=== PATIENT | male | born 1950 | race Caucasian/White ===

== ENCOUNTER → 2017-01-05 | Outpatient (CLI) | payer MEDICARE, OTHER ==
--- NOTE | 2017-01-06 12:25 | XCELERA REPORT ---
[address] [address] Lower Extremity Arterial Evaluation Name: HILARIO BRUCE Age: 66 yrs Gender: Male : 1950 Patient Status: Outpatient Patient Location: Study Date: 01/05/2017 08:01 AM Procedure: A color flow and duplex scan of the lower extremity arteries was performed bilaterally with velocity and waveform anaylsis. Ankle brachial indicies performed. Reason For Study: PAIN Ordering Physician: POLO LEAHY Performed By: Willy Hood Measurements and Calculations Right Left FAIRGROUND OPERATOR PSV 107.6 130.4 cm/sec Prox PFA PSV 65.3 -104.1 cm/sec Dist SFA PSV -95.5 -111.7 cm/sec Dist Pop A PSV 98.7 95.7 cm/sec Dist WAYNE PSV 116.3 118.6 cm/sec Dist VBA DEVELOPER PSV 135.1 188.6 cm/sec Tj Pedis PSV 96.6 -123.4 cm/sec Right Side Arterial Evaluation Normal velocity and triphasic waveforms noted from the Common Femoral artery to the infrageniculate vessels. 0 % stenosis noted. Ankle Brachial index not obtainable due to compressibility. Left Side Arterial Evaluation Normal velocity and triphasic waveforms noted from the Common Femoral artery to the infrageniculate vessels. 0 % stenosis noted. Ankle Brachial index not obtainable due to compressibility. Interpretation Summary No hemodynamically significant lesions in the bilateral lower extremities, on duplex imaging, at rest. Atherosclerotic change suggested by non compressibility. : POLO LEAHY > Polo Leahy
== END ==
LOC: SP 07:39
PROVIDERS: ATTEND Surgery
DX: M79.606 Pain in leg, unspecified (principal)
CPT/HCPCS: 93925

== ENCOUNTER → 2017-01-26 | Outpatient (CLI) | payer MEDICARE, OTHER ==
[2017-01-26 11:30] LABS: ABSOLUTE BASOPHILS # (AUTO) 0.1 10^3/uL (0.0-0.2); ABSOLUTE EOSINOPHILS # (AUTO) 0.1 10^3/uL (0.0-0.6); ABSOLUTE LYMPHOCYTES (AUTO) 1.9 10^3/uL (0.5-4.7); ABSOLUTE MONOCYTES (AUTO) 0.7 10^3/uL (0.1-1.4); ABSOLUTE NEUT (AUTO) 5.5 10^3/uL (1.7-8.2); BASOPHILS % (AUTO) 0.9 % (0-2); EOSINOPHILS % (AUTO) 0.7 % (0-6); HEMATOCRIT 37.3 % (37.9-51.0); HGB HCT DIFFERENCE 1.7; LYMPHOCYTES % (AUTO) 23.3 % (13-45); MEAN CORPUSCULAR HEMOGLOBIN 32.2 pg (27.0-33.4); MEAN CORPUSCULAR HGB CONC 34.8 g/dL (32.0-36.0); MEAN CORPUSCULAR VOLUME 93 fl (80-97); MONOCYTES % (AUTO) 7.9 % (3-13); RED BLOOD COUNT 4.02 10^6/uL (4.35-5.55); RED CELL DISTRIBUTION WIDTH 12.4 % (11.5-14.0); SEGMENTED NEUTROPHILS % (AUTO) 67.2 % (42-78); WHITE BLOOD COUNT 8.2 10^3/uL (4.0-10.5)
[2017-01-26 11:51] LABS: ALANINE AMINOTRANSFERASE 38 U/L (21-72); ALBUMIN 4.3 g/dL (3.5-5.0); ALKALINE PHOSPHATASE 41 U/L (38-126); ANION GAP 13 (5-19); ASPARTATE AMINO TRANSFERASE 42 U/L (17-59); BILIRUBIN,DIRECT 0.6 mg/dL (0.0-0.4); BILIRUBIN,TOTAL 1.1 mg/dL (0.2-1.3); BLOOD UREA NITROGEN 22 mg/dL (7-20); C-REACTIVE PROTEIN 18.5 mg/L (<10.0); CALCIUM 10.2 mg/dL (8.4-10.2); CARBON DIOXIDE 27 mmol/L (22-30); CHLORIDE 100 mmol/L (98-107); CREATININE RESULT 1.16 mg/dL (0.52-1.25); GLUCOSE 295 mg/dL (75-110); POTASSIUM 4.8 mmol/L (3.6-5.0); SODIUM 139.8 mmol/L (137-145); TOTAL PROTEIN 7.7 g/dL (6.3-8.2)
[2017-01-26 12:11] LABS: ERYTHROCYTE SEDIMENTATION RATE 49 mm/hr (0-20)
--- NOTE | 2017-01-26 12:15 | RADIOLOGY REPORT (SQ) ---
EXAM DESCRIPTION: FOOT LEFT COMPLETE COMPLETED DATE/TIME: 01/26/2017 11:04 am REASON FOR STUDY: NON-PRS CHRONIC ULCER OTH PRT LEFT FOOT W FAT LAYER EXPOSED L97.522 NON-PRS CHRON IC ULCER OTH PRT LEFT FOOT W FAT LAYER COMPARISON: None. NUMBER OF VIEWS: Three views. TECHNIQUE: AP, lateral and oblique radiographic images acquired of the left foot. LIMITATIONS: None. FINDINGS: MINERALIZATION: Normal. BONES: No acute fracture or dislocation. No worrisome bone lesions. No evidence of osteomyelitis. JOINTS: There is mild subluxation of the 1st interphalangeal joint. SOFT TISSUES: The soft tissue ulcer on the base of the 1st digit. There is no evidence of osteomyeli tis. Extensive calcification within Achilles tendon. OTHER: No other significant finding. IMPRESSION: Mild subluxation of the 1st interphalangeal joint. No evidence of osteomyelitis. Prior Achilles tendinopathy versus prior injury. TECHNICAL DOCUMENTATION: JOB ID: [id number] [employer]- All Rights Reserved
== END ==
LOC: OD 10:32
PROVIDERS: ATTEND Nurse Practitioner Family
DX: L97.522 Non-pressure chronic ulcer of other part of left foot with fat layer exposed (principal)
CPT/HCPCS: 36415; 80053; 85025; 85652; 86140

== ENCOUNTER → 2018-03-30 | Outpatient (CLI) | payer MEDICARE, OTHER ==
[2018-03-30 11:42] LABS: ABSOLUTE BASOPHILS # (AUTO) 0.1 10^3/uL (0.0-0.2); ABSOLUTE LYMPHOCYTES (AUTO) 1.8 10^3/uL (0.5-4.7); ABSOLUTE MONOCYTES (AUTO) 0.6 10^3/uL (0.1-1.4); ABSOLUTE NEUT (AUTO) 6.9 10^3/uL (1.7-8.2); BASOPHILS % (AUTO) 0.8 % (0-2); EOSINOPHILS % (AUTO) 0.4 % (0-6); HEMATOCRIT 33.7 % (37.9-51.0); HEMOGLOBIN 11.4 g/dL (13.5-17.0); LYMPHOCYTES % (AUTO) 19.3 % (13-45); MEAN CORPUSCULAR HEMOGLOBIN 30.2 pg (27.0-33.4); MEAN CORPUSCULAR HGB CONC 33.7 g/dL (32.0-36.0); MEAN CORPUSCULAR VOLUME 90 fl (80-97); MONOCYTES % (AUTO) 6.5 % (3-13); PLATELET COUNT 266 10^3/uL (150-450); RED BLOOD COUNT 3.76 10^6/uL (4.35-5.55); RED CELL DISTRIBUTION WIDTH 12.7 % (11.5-14.0); TOTAL CELLS COUNTED % (AUTO) 100 %; WHITE BLOOD COUNT 9.5 10^3/uL (4.0-10.5)
--- NOTE | 2018-03-30 11:59 | RADIOLOGY REPORT (SQ) ---
EXAM DESCRIPTION: FOOT BILATERAL 3 VIEWS COMPLETED DATE/TIME: 03/30/2018 11:31 am REASON FOR STUDY: NON PRESSURE ULCER RT/LT FOOT WITH FAT LAYER EXPOSED E11.621 TYPE 2 DIABETES LUZ ITUS WITH FOOT ULCER L97.522 NON-PRS CHRONIC ULCER OTH PRT LEFT FOOT W FAT LAYER L97.512 NON-PRS C HRONIC ULCER OTH PRT RIGHT FOOT W FAT LAYER COMPARISON: None. NUMBER OF VIEWS: Three views. TECHNIQUE: AP, lateral and oblique radiographic images acquired of the right and left foot. LIMITATIONS: None. FINDINGS: MINERALIZATION: Normal. BONES: No fracture. Partial amputation of the tip of the left 1st distal phalanx. Subluxation of th e left 1st interphalangeal joint. The proximal and distal phalanges in the left 1st digit have a leslie ewhat heterogeneous appearance. There is a prominent dorsal calcaneal spur on the left. No signific ant osseous abnormality is seen on the right. There are dorsal and plantar calcaneal spurs on the ri ght. JOINTS: No effusions. SOFT TISSUES: Soft tissue calcifications are seen in the Achilles tendon on the left. OTHER: No other significant finding. IMPRESSION: 1. There are changes in the left 1st digit as described. Cannot exclude osteomyelitis. 2. There is a prominent dorsal calcaneal spur on the left. There is evidence of Achilles tendinopat hy. 3. Small dorsal and plantar calcaneal spurs on the right. TECHNICAL DOCUMENTATION: JOB ID: [id number] [employer]- All Rights Reserved Reading location - IP/workstation name: [email or web address]
[2018-03-30 12:06] LABS: ALANINE AMINOTRANSFERASE 17 U/L (21-72); ALBUMIN 3.9 g/dL (3.5-5.0); ALKALINE PHOSPHATASE 49 U/L (38-126); ANION GAP 15 (5-19); ASPARTATE AMINO TRANSFERASE 17 U/L (17-59); BILIRUBIN,DIRECT 0.4 mg/dL (0.0-0.4); BILIRUBIN,TOTAL 0.6 mg/dL (0.2-1.3); BLOOD UREA NITROGEN 29 mg/dL (7-20); C-REACTIVE PROTEIN 36.1 mg/L (<10.0); CALCIUM 9.6 mg/dL (8.4-10.2); CARBON DIOXIDE 28 mmol/L (22-30); CHLORIDE 93 mmol/L (98-107); POTASSIUM 5.1 mmol/L (3.6-5.0); TOTAL PROTEIN 7.5 g/dL (6.3-8.2)
[2018-03-30 12:28] LABS: ERYTHROCYTE SEDIMENTATION RATE 106 mm/hr (0-20)
[2018-03-30 13:02] LABS: GLUCOSE 447 mg/dL (75-110)
== END ==
LOC: OD 10:54
PROVIDERS: ATTEND Preventive Medicine Undersea and Hyperbaric Medicine
DX: E11.621 Type 2 diabetes mellitus with foot ulcer (principal); L97.522 Non-pressure chronic ulcer of other part of left foot with fat layer exposed
CPT/HCPCS: 36415; 80053; 83036; 85025; 85652; 86140

== ENCOUNTER → 2018-04-05 | Outpatient (CLI) | payer MEDICARE, OTHER ==
--- NOTE | 2018-04-06 17:19 | XCELERA REPORT ---
[address] [address] Lower Extremity Arterial Evaluation Name: HILARIO BRUCE Age: 67 yrs Gender: Male : 1950 Patient Status: Outpatient Patient Location: Study Date: 04/05/2018 03:14 PM Procedure: A color flow and duplex scan of the lower extremity arteries was performed bilaterally with velocity and waveform anaylsis. Reason For Study: ULCER Ordering Physician: FRANKLYN GENTILE Performed By: Hugo Gomez Measurements and Calculations Right Left [employer] PSV 121.0 135.9 cm/sec Prox PFA PSV -64.0 73.3 cm/sec Prox Pop A PSV 91.1 110.3 cm/sec Dist WAYNE PSV 102.7 104.3 cm/sec Dist IRRIGATION TECHNICIAN PSV 136.2 217.8 cm/sec Tj Pedis PSV -48.7 -71.2 cm/sec Right Side Arterial Evaluation Normal velocity and triphasic waveforms noted from the Common Femoral artery to the infrageniculate vessels . Ankle Brachial index indicates non compressibility. Left Side Arterial Evaluation Normal velocity and triphasic waveforms noted from the Common Femoral artery to the infrageniculate vessels, except for PSV ratio of 2 at the Posterior Tibial artery, suggesting > 50% stenosis . Ankle Brachial index indicates non compressibility. Interpretation Summary Ankle Brachial indices show non compressibility, indicating arteriosclerosis. No hemodynamically significant lesions in the right lower extremity only, on duplex imaging, at rest. Mild hemodynamically significant lesions in the left lower extremity only, on duplex imaging, at rest. : FRANKLYN GENTILE > Arnaldo Sullivan
== END ==
LOC: SP 15:17
PROVIDERS: ATTEND Preventive Medicine Undersea and Hyperbaric Medicine
DX: L97.512 Non-pressure chronic ulcer of other part of right foot with fat layer exposed (principal)
CPT/HCPCS: 93925

== ENCOUNTER 2018-04-06 11:34 | Inpatient (IN) | payer MEDICARE, OTHER ==
--- NOTE | 2018-04-06 12:07 | ER Document Report ---
ED Medical Screen (RME) - General Chief Complaint: Foot Pain Stated Complaint: FOOT PAIN Time Seen by Provider: 04/06/18 12:03 Notes: 67 years old male with history of diabetes diabetic ulcers, presents today with gangrenous left toe as well as toe infection on the right big toe. He was sent over here by his inspector agricultural commodities. TRAVEL OUTSIDE OF THE [place] IN LAST 30 DAYS: No - Related Data Allergies/Adverse Reactions: No Known Allergies Allergy (Unverified 04/06/18 11:36) Past Medical History - Social History Frequency of alcohol use: None Drug Abuse: None - Past Medical History Cardiac Medical History: Reports: Hx Hypercholesterolemia, Hx Hypertension Endocrine Medical History: Reports: Hx Diabetes Mellitus Type 2 Renal/ Medical History: Denies: Hx Peritoneal Dialysis Physical Exam - Vital signs Vitals: Temp Pulse Resp BP Pulse Ox 98.9 F 76 16 128/63 H 97 04/06/18 11:37 04/06/18 11:37 04/06/18 11:37 04/06/18 11:37 04/06/18 11:37 Course - Vital Signs Vital signs: Temp Pulse Resp BP Pulse Ox 98.9 F 76 16 128/63 H 97 04/06/18 11:37 04/06/18 11:37 04/06/18 11:37 04/06/18 11:37 04/06/18 11:37 Doctor's Discharge - Discharge Referrals: FRANKLYN GENTILE DPM [Primary Care Provider] - Follow up as needed
[2018-04-06 12:53] LABS: ABSOLUTE BASOPHILS # (AUTO) 0.1 10^3/uL (0.0-0.2); ABSOLUTE LYMPHOCYTES (AUTO) 2.2 10^3/uL (0.5-4.7); ABSOLUTE MONOCYTES (AUTO) 0.8 10^3/uL (0.1-1.4); ABSOLUTE NEUT (AUTO) 8.2 10^3/uL (1.7-8.2); BASOPHILS % (AUTO) 0.9 % (0-2); EOSINOPHILS % (AUTO) 0.3 % (0-6); HEMATOCRIT 31.3 % (37.9-51.0); HEMOGLOBIN 10.5 g/dL (13.5-17.0); LYMPHOCYTES % (AUTO) 19.5 % (13-45); MEAN CORPUSCULAR HEMOGLOBIN 29.4 pg (27.0-33.4); MEAN CORPUSCULAR HGB CONC 33.6 g/dL (32.0-36.0); MEAN CORPUSCULAR VOLUME 88 fl (80-97); MONOCYTES % (AUTO) 7.1 % (3-13); PLATELET COUNT 371 10^3/uL (150-450); RED BLOOD COUNT 3.57 10^6/uL (4.35-5.55); SEGMENTED NEUTROPHILS % (AUTO) 72.2 % (42-78); TOTAL CELLS COUNTED % (AUTO) 100 %; WHITE BLOOD COUNT 11.4 10^3/uL (4.0-10.5)
--- NOTE | 2018-04-06 13:21 | RADIOLOGY REPORT (SQ) ---
EXAM DESCRIPTION: TOE LEFT; TOE RIGHT COMPLETED DATE/TIME: 04/06/2018 1:09 pm REASON FOR STUDY: Toe infection, osteomyelitis COMPARISON: 03/30/2018 NUMBER OF VIEWS: Three views. TECHNIQUE: AP, lateral, and oblique images acquired of the bilateral great toes. LIMITATIONS: None. FINDINGS: MINERALIZATION: Normal. BONES: There has been the interval reduction of the previously seen dislocation of the distal phalanx of the left great toe. There is new erosive loss of mineralization. JOINTS: No effusions. SOFT TISSUES: Extensive soft tissue swelling about the left great toe with subcutaneous emphysema. OTHER: No other significant finding. IMPRESSION: 1. Interval reduction of the previously seen dislocation of the distal phalanx of the le ft great toe. 2. There is new erosive loss of mineralization of the distal phalanx, concerning for osteomyelitis. 3. Extensive soft tissue swelling about the left great toe with subcutaneous emphysema, findings con cerning for gas-forming infection. COMMENT: SITE OF TRAUMA/COMPLAINT MARKED/STAMP COMPLETED: YES. TECHNICAL DOCUMENTATION: JOB ID: [id number] [employer]- All Rights Reserved Reading location - IP/workstation name: [email or web address]
--- NOTE | 2018-04-06 13:21 | RADIOLOGY REPORT (SQ) ---
EXAM DESCRIPTION: TOE LEFT; TOE RIGHT COMPLETED DATE/TIME: 04/06/2018 1:09 pm REASON FOR STUDY: Toe infection, osteomyelitis COMPARISON: 03/30/2018 NUMBER OF VIEWS: Three views. TECHNIQUE: AP, lateral, and oblique images acquired of the bilateral great toes. LIMITATIONS: None. FINDINGS: MINERALIZATION: Normal. BONES: There has been the interval reduction of the previously seen dislocation of the distal phalanx of the left great toe. There is new erosive loss of mineralization. JOINTS: No effusions. SOFT TISSUES: Extensive soft tissue swelling about the left great toe with subcutaneous emphysema. OTHER: No other significant finding. IMPRESSION: 1. Interval reduction of the previously seen dislocation of the distal phalanx of the le ft great toe. 2. There is new erosive loss of mineralization of the distal phalanx, concerning for osteomyelitis. 3. Extensive soft tissue swelling about the left great toe with subcutaneous emphysema, findings con cerning for gas-forming infection. COMMENT: SITE OF TRAUMA/COMPLAINT MARKED/STAMP COMPLETED: YES. TECHNICAL DOCUMENTATION: JOB ID: [id number] [employer]- All Rights Reserved Reading location - IP/workstation name: [email or web address]
[2018-04-06 13:22] LABS: ALANINE AMINOTRANSFERASE 19 U/L (21-72); ALBUMIN 3.7 g/dL (3.5-5.0); ALKALINE PHOSPHATASE 69 U/L (38-126); ANION GAP 16 (5-19); ASPARTATE AMINO TRANSFERASE 31 U/L (17-59); BILIRUBIN,DIRECT 0.4 mg/dL (0.0-0.4); BILIRUBIN,TOTAL 0.7 mg/dL (0.2-1.3); BLOOD UREA NITROGEN 35 mg/dL (7-20); C-REACTIVE PROTEIN 72.3 mg/L (<10.0); CALCIUM 9.4 mg/dL (8.4-10.2); CARBON DIOXIDE 27 mmol/L (22-30); CHLORIDE 93 mmol/L (98-107); GLUCOSE 327 mg/dL (75-110); POTASSIUM 4.4 mmol/L (3.6-5.0); SODIUM 136.3 mmol/L (137-145); TOTAL PROTEIN 7.5 g/dL (6.3-8.2)
--- NOTE | 2018-04-06 13:23 | ER Document Report ---
ED General - General Chief Complaint: Foot Pain Stated Complaint: FOOT PAIN Time Seen by Provider: 04/06/18 12:03 Mode of Arrival: Ambulatory Information source: Patient TRAVEL OUTSIDE OF THE [place] IN LAST 30 DAYS: No - HPI Notes: 59-year-old male with a history of type 2 diabetes, hypertension presents to the ED for left toe pain with diabetic ulcers and weeping discharge from his wound care clinic. Patient has been seeing wound clinic for diabetic ulcers, was told that he may have osteomyelitis and will need IV antibiotics. Has not tried [id number] medications. Patient states his A1c is roughly 9.6, he does have an appointment with his primary care provider in the near future. Denies any new injury. States he has not had any sensation in his left foot for "years" denies fevers, chills, chest pain,palpitations, shortness of breath, d speech changes, LH, dizziness, syncope, headaches, wheezing, ST, URI, neck pain, numbness or tingling in bilateral upper or lower extremities equally aside from his left foot, muscle paralysis, weakness in bilateral upper or lower extremities bilaterally. - Related Data Allergies/Adverse Reactions: No Known Allergies Allergy (Unverified 04/06/18 11:36) Past Medical History - General Information source: Patient - Social History Smoking Status: Never Smoker Frequency of alcohol use: None Drug Abuse: None Family History: Reviewed & Not Pertinent Patient has suicidal ideation: No Patient has homicidal ideation: No - Past Medical History Cardiac Medical History: Reports: Hx Hypercholesterolemia, Hx Hypertension Endocrine Medical History: Reports: Hx Diabetes Mellitus Type 2 Renal/ Medical History: Denies: Hx Peritoneal Dialysis Review of Systems - Review of Systems Constitutional: No symptoms reported EENT: No symptoms reported Cardiovascular: No symptoms reported Respiratory: No symptoms reported Gastrointestinal: No symptoms reported Genitourinary: No symptoms reported Male Genitourinary: No symptoms reported Musculoskeletal: No symptoms reported Skin: See HPI Hematologic/Lymphatic: No symptoms reported Neurological/Psychological: No symptoms reported Physical Exam - Vital signs Vitals: Temp Pulse Resp BP Pulse Ox 98.9 F 76 16 128/63 H 97 04/06/18 11:37 04/06/18 11:37 04/06/18 11:37 04/06/18 11:37 04/06/18 11:37 - Notes Notes: PHYSICAL EXAMINATION: GENERAL: Well-appearing, well-nourished and in no acute distress. HEAD: Atraumatic, normocephalic. EYES: Pupils equal round and reactive to light, extraocular movements intact, sclera anicteric, conjunctiva are normal. ENT: Nares patent, oropharynx clear without exudates. Moist mucous membranes. NECK: Normal range of motion, supple without lymphadenopathy LUNGS: Breath sounds clear to auscultation bilaterally and equal. No wheezes rales or rhonchi. HEART: Regular rate and rhythm without murmurs ABDOMEN: Soft, nontender, nondistended abdomen. No guarding, no rebound. No masses appreciated. Musculoskeletal: Normal range of motion, no pitting or edema. No cyanosis. NEUROLOGICAL: Cranial nerves grossly intact. Normal speech, normal gait. Normal sensory, motor exams PSYCH: Normal mood, normal affect. SKIN: Warm, Dry, normal turgor, no rashes or lesions noted. Decubitus diabetic ulcers to left great toe with purulent drainage noted with surrounding erythema. Distal pulses +2 bilateral lower extremities. Skin warm, cap refill less than 3 seconds. Ulcer to right great toe approximately 2 cm x 2 cm. Course - Re-evaluation Re-evalutation: 04/06/18 14:12 -year-old male presents to the ED for evaluation of left great toe decubitus ulcer for concerns of osteomyelitis per wound clinic. CBC shows a white count of 11.4 no shift, lactic 1.5, CRP 72.3 x-ray of left foot does show extensive soft tissue swelling with subcutaneous emphysema concerning for gas formation as well as concerning for osteomyelitis due to new erosive loss of mineralization of the distal phalanx, patient has had previous dislocation. consulted with Dr. Pola Garza, surgeon, at [address] Mary Warner, hospitalist at 1410 for IV antibiotics and management of colitis possible necrotizing fasciitis, surgery consulted and will see patient. Plan of care and agreed with plan of care. Patient admitted to medical floor under hospitalist service. Vitals remained Stable throughout duration in ER - Vital Signs Vital signs: Temp Pulse Resp BP Pulse Ox 98.9 F 76 16 128/63 H 97 04/06/18 11:37 04/06/18 11:37 04/06/18 11:37 04/06/18 11:37 04/06/18 11:37 - Laboratory Result Diagrams: 04/06/18 12:38 04/06/18 12:38 Laboratory results interpreted by me: 04/06/18 04/06/18 12:38 12:38 WBC 11.4 H RBC 3.57 L Hgb 10.5 L Hct 31.3 L Sodium 136.3 L Chloride 93 L BUN 35 H Creatinine 1.59 H Est GFR ( Amer) 53 L Est GFR (Non-Af Amer) 44 L Glucose 327 H ALT 19 L C-Reactive Protein 72.3 H Discharge - Discharge Clinical Impression: Toe osteomyelitis, left Condition: Stable Disposition: ADMITTED INPATIENT Admitting Provider: Hospitalist - Dr. Zavala [facility] Unit Admitted: Medical Floor
[2018-04-06] MEDS ORDERED: PIPERACILLIN/TAZOBACTAM 3.375 GM VIAL IV ONE (14:00)
[2018-04-06] MEDS ORDERED: VANCOMYCIN HCL INJ 1000 MG VIAL IV ONE (14:00)
--- NOTE | 2018-04-06 14:50 | PDOC CONSULTATION ---
History of Present Illness Admission Date/PCP: 04/06/18 14:31 KARYNA SUTHERLAND MD Patient complains of: Left great toe infection History of Present Illness: HILARIO BRUCE is a 67 year old male with diabetes with several month history of left great toe ulcer now presenting with worsening redness and generalized malaise over the past several days. Along with drainage. Patient denies any fever but he has not been feeling well. Elevated blood sugars. Foul-smelling drainage. Patient does have sensation in his left foot albeit somewhat diminished. Patient denies any history of myocardial infarction nor cerebrovascular accident. No known peripheral vascular disease. Past Medical History Cardiac Medical History: Reports: Hyperlipidema, Hypertension Endocrine Medical History: Reports: Diabetes Mellitus Type 2 Social History Smoking Status: Never Smoker Family History Parental Family History Reviewed: No Children Family History Reviewed: No Sibling(s) Family History Reviewed.: No Medication/Allergy Allergies/Adverse Reactions: No Known Allergies Allergy (Unverified 04/06/18 11:36) Physical Exam Vital Signs: Temp Pulse Resp BP Pulse Ox 98.9 F 76 16 128/63 H 97 04/06/18 11:37 04/06/18 11:37 04/06/18 11:37 04/06/18 11:37 04/06/18 11:37 General appearance: PRESENT: no acute distress, cooperative Eye exam: PRESENT: conjunctiva pink Respiratory exam: PRESENT: clear to auscultation donaldo Cardiovascular exam: PRESENT: RRR GI/Abdominal exam: PRESENT: other - Soft, nondistended, nontender to palpation. Extremities exam: PRESENT: other - On the right great toe patient has a very shallow clean ulcer with no drainage no erythema. Patient has some skin thickening around the great toe however. He has palpable dorsalis pedis and posterior tibial pulses. On the left side patient has diffuse swelling and erythema and crepitus of the right great toe extending cephalad to the midportion of his great toe metatarsal. There is foul-smelling drainage. There is an ulcer at the plantar surface of the great toe with drainage at the center. I do not appreciate dorsalis pedis pulse but there is 2+ posterior tibial pulse on the left side. Neurological exam: PRESENT: alert, awake Psychiatric exam: PRESENT: appropriate affect Skin exam: PRESENT: warm Results Impressions: Toe X-Ray 04/06/18 12:05 IMPRESSION: 1. Interval reduction of the previously seen dislocation of the distal phalanx of the left great toe. 2. There is new erosive loss of mineralization of the distal phalanx, concerning for osteomyelitis. 3. Extensive soft tissue swelling about the left great toe with subcutaneous emphysema, findings concerning for gas-forming infection. Assessment & Plan - Diagnosis (1) Toe osteomyelitis, left Is this a current diagnosis for this admission?: Yes Plan: With subcutaneous air and erythema and foul-smelling drainage. We will plan emergency left great toe amputation and debridement. Will obviously leave the wound open with the degree of infection that is present. I have discussed with the patient the nature of the surgery and the risk and benefits including risk of requiring additional surgery, poor wound healing, continued spreading of infection, bleeding. Patient understands and agrees to proceed.
--- NOTE | 2018-04-06 15:06 | PDOC H&P ---
History of Present Illness Admission Date/PCP: KARYNA SUTHERLAND MD Patient complains of: Foot pain History of Present Illness: HILARIO BRUCE is a 67 year old male past medical history of diabetes and hypertension presented to ED ED complaining of bilateral great toe pain, plantar aspect ulcers ulcers, weeping discharge associated with pain with ambulation. He has had left great toe plantar aspect ulcer about 4 months which has been managed as outpatient by his sausage meat trimmer. One week ago he noticed that his left great toe ulcer was worsening and is starting to get red and become more painful he went to his sausage meat trimmer and was discharged with wound care. He noticed that his ulcer was not getting better and today he noticed that it was getting redder and starting to produce purulent discharge. Also has right great toe plantar aspect ulcer which has a started about a week ago he denies noticing form of trauma that could have caused the ulcer. He is denying any fever, shortness of breath, chills, nausea, vomiting, diarrhea , constipation or any urinary symptoms. ED he was found to have severely elevated CRP. 02/04/2018 left foot x-ray showed a left great toe new erosive loss of mineralization concerning for osteomyelitis as well as extensive soft tissue swelling around the great left toe with subcutaneous emphysema. 02/04/2018 right great toe x-ray could not exclude osteomyelitis. Surgery was consulted by ED physician and they were asked to call medicine team for admission and will follow patient. Past Medical History Cardiac Medical History: Reports: Hyperlipidema, Hypertension Endocrine Medical History: Reports: Diabetes Mellitus Type 2 Social History Smoking Status: Never Smoker Family History Parental Family History Reviewed: Yes Children Family History Reviewed: Yes Sibling(s) Family History Reviewed.: Yes Medication/Allergy Home Medications: Doxycycline Hyclate [Vibramycin 100 mg Tablet] 20 mg PO BID 04/06/18 Fenofibrate Nanocrystallized [Tricor 145 mg Tablet] 145 mg PO DAILY 04/06/18 Glimepiride [Amaryl 4 mg Tablet] 4 mg PO DAILY 04/06/18 Meclizine HCl [Antivert 12.5 mg Tablet] 12.5 mg PO BIDP PRN 04/06/18 Metoprolol Succinate [Toprol XL 100 mg Tablet] 100 mg PO DAILY 04/06/18 Allergies/Adverse Reactions: No Known Allergies Allergy (Unverified 04/06/18 11:36) Physical Exam Vital Signs: Temp Pulse Resp BP Pulse Ox 98.9 F 76 16 128/63 H 97 04/06/18 11:37 04/06/18 11:37 04/06/18 11:37 04/06/18 11:37 04/06/18 11:37 Intake & Output 04/05/18 04/06/18 04/07/18 06:59 06:59 06:59 Weight 105.3 kg General appearance: PRESENT: no acute distress, mild distress Head exam: PRESENT: atraumatic, normocephalic Eye exam: PRESENT: conjunctiva pink, EOMI, PERRLA. ABSENT: scleral icterus Ear exam: PRESENT: normal external ear exam Neck exam: ABSENT: carotid bruit, JVD, lymphadenopathy, thyromegaly Respiratory exam: PRESENT: clear to auscultation donaldo. ABSENT: rales, rhonchi, wheezes Cardiovascular exam: PRESENT: RRR. ABSENT: diastolic murmur, rubs, systolic murmur Pulses: PRESENT: normal dorsalis pedis pul Vascular exam: PRESENT: normal capillary refill Rectal exam: PRESENT: deferred Extremities exam: PRESENT: other - Left great toe swollen red erythematous with clear weeping discharge. Tender to palpation. There is an ulcer at the base of the left great toe Right great toe plantar aspect 2 x 2 centimeter ulcer erythematous with no sign of discharge. Musculoskeletal exam: PRESENT: full ROM, normal inspection Neurological exam: PRESENT: alert, awake, oriented to person, oriented to place , oriented to time, oriented to situation, CN II-XII grossly intact. ABSENT: motor sensory deficit Psychiatric exam: PRESENT: appropriate affect, normal mood. ABSENT: homicidal ideation, suicidal ideation Results Laboratory Results: 04/06/18 12:38 04/06/18 12:38 04/06/18 04/06/18 04/06/18 12:38 12:38 12:38 WBC 11.4 H RBC 3.57 L Hgb 10.5 L Hct 31.3 L MCV 88 MCH 29.4 MCHC 33.6 RDW 13.0 Plt Count 371 Seg Neutrophils % 72.2 Lymphocytes % 19.5 Monocytes % 7.1 Eosinophils % 0.3 Basophils % 0.9 Absolute Neutrophils 8.2 Absolute Lymphocytes 2.2 Absolute Monocytes 0.8 Absolute Eosinophils 0.0 Absolute Basophils 0.1 Sodium 136.3 L Potassium 4.4 Chloride 93 L Carbon Dioxide 27 Anion Gap 16 BUN 35 H Creatinine 1.59 H Est GFR ( Amer) 53 L Est GFR (Non-Af Amer) 44 L Glucose 327 H Lactic Acid 1.5 Calcium 9.4 Total Bilirubin 0.7 AST 31 ALT 19 L Alkaline Phosphatase 69 C-Reactive Protein 72.3 H Total Protein 7.5 Albumin 3.7 Impressions: Toe X-Ray 04/06/18 12:05 IMPRESSION: 1. Interval reduction of the previously seen dislocation of the distal phalanx of the left great toe. 2. There is new erosive loss of mineralization of the distal phalanx, concerning for osteomyelitis. 3. Extensive soft tissue swelling about the left great toe with subcutaneous emphysema, findings concerning for gas-forming infection. Assessment & Plan - Diagnosis (1) Toe osteomyelitis, left Is this a current diagnosis for this admission?: Yes Plan: Likely source could be from the untreated chronic left great toe ulcer caused by uncontrolled underlying diabetes. X-ray positive for osteomyelitis. Surgery is planning amputation. We will start on Vanco and Zosyn. Wound and blood culture. Will de-escalate antibiotics based on cultures. Left lower extremity ultrasound. Optimize blood sugar. (2) Diabetic foot ulcer associated with type 2 diabetes mellitus Qualifiers: Laterality: right Non-pressure ulcer stage: limited to breakdown of skin Is this a current diagnosis for this admission?: Yes Plan: Likely due to uncontrolled diabetes. 04/06/2018. Right great toe x-ray could not exclude osteomyelitis. Will order right foot MRI to rule out any early evolving osteomyelitis. Broad-spectrum antibiotics. Wound care. Follow wound culture and blood culture. Optimize blood glucose. (3) Hyperlipidemia Is this a current diagnosis for this admission?: Yes Plan: No lipid panel available. Will start on high intensity statins. Follow-up lipid panel. Diet and lifestyle modification. (4) Hypertension Is this a current diagnosis for this admission?: Yes Plan: Normotensive. Retart home meds. Monitor vitals adjust meds as needed. (5) Diabetes Is this a current diagnosis for this admission?: Yes Plan: Uncontrolled. Long-acting insulin, pre-meal insulin, sliding scale insulin, Accu-Chek, diabetic diet, diabetic education. Will adjust dosage as needed.
[2018-04-06] MEDS ORDERED: ONDANSETRON HCL INJ/PF 4 MG/2 ML SDV IV PRN (15:24)
[2018-04-06] MEDS ORDERED: DEXTROSE 10%-WATER 1,000 ML IV PRN (15:24)
[2018-04-06] MEDS ORDERED: TEMAZEPAM 7.5 MG CAPSULE PO PRN (15:24)
[2018-04-06] MEDS ORDERED: IPRATROPIUM/ALBUTEROL 0.5-2.5 MG/3 ML AMPUL NEB PRN (15:24)
[2018-04-06] MEDS ORDERED: DEXTROSE 50%-WATER 25 GM/50 ML DISP.SYRIN IV PRN ×4 (15:31→15:35)
[2018-04-06] MEDS ORDERED: DEXTROSE 40% GEL 15 GM TUBE PO PRN ×4 (15:31→15:35)
[2018-04-06] MEDS ORDERED: GLUCAGON,HUMAN RECOMB 1 MG INJ IM PRN ×2 (15:31→15:35)
[2018-04-06] MEDS ORDERED: VANCOMYCIN HCL 0 MG in DEXTROSE 5%-WATER 250 ML IV NR (15:45)
[2018-04-06] MEDS ORDERED: FENTANYL CITRATE INJ/PF 100 MCG/2 ML AMPUL ONE ×2 (16:44→18:07)
[2018-04-06] MEDS ORDERED: ONDANSETRON HCL INJ/PF 4 MG/2 ML SDV ONE (16:44)
[2018-04-06] MEDS ORDERED: MIDAZOLAM 2 MG/2 ML INJ ONE (16:44)
[2018-04-06] MEDS ORDERED: PROPOFOL INJ 200 MG/20 ML VIAL IV ONE ×2 (16:45→18:06)
[2018-04-06] MEDS ORDERED: BUPIVACAINE HCL 0.25 % INJ/PF (2.5 MG/1 ML) 30 ML VIAL ONE (16:54)
[2018-04-06] MEDS ORDERED: DIPHENHYDRAMINE HCL 50 MG/ML VIAL IV PRN (17:32)
[2018-04-06] MEDS ORDERED: MORPHINE SULFATE 10 MG/ML INJ IV PRN (17:32)
[2018-04-06] MEDS ORDERED: MEPERIDINE HCL/PF INJ 25 MG/1 ML DISP.SYRIN IV PRN (17:32)
[2018-04-06] MEDS ORDERED: OXYCODONE-ACETAMINOPHEN 5-325 MG TABLET PO PRN ×2 (17:32)
[2018-04-06] MEDS ORDERED: FENTANYL CITRATE INJ/PF 100 MCG/2 ML AMPUL IV PRN ×3 (17:32)
[2018-04-06] MEDS ORDERED: PROMETHAZINE HCL INJ 25 MG/1 ML VIAL IV PRN ×2 (17:32)
--- NOTE | 2018-04-06 22:36 | EKG REPORT ---
SEVERITY:- OTHERWISE NORMAL ECG - SINUS RHYTHM BORDERLINE LEFT AXIS DEVIATION : Confirmed by: Ana Coates 06-Apr-2018 22:35:52
[2018-04-06] MEDS: OXYCODONE-ACETAMINOPHEN 5-325 MG TABLET PO PRN (22:45)
[2018-04-06] MEDS: INSULIN GLARGINE,HUM.REC.ANLOG 300 UNIT/3 ML INSULN.PEN SUBCUT SCH (22:45)
[2018-04-06] MEDS: HEPARIN SOD (PORCINE) 5,000 UNIT/ML 1 ML SYRINGE SUBCUT SCH (22:47)
[2018-04-06] MEDS: ACETAMINOPHEN 325 MG TABLET PO PRN (22:47)
[2018-04-06] MEDS: PIPERACILLIN SODIUM/TAZOBACTAM 4.5 GM in NORMAL SALINE 100 ML IV SCH (22:47)
[2018-04-06] MEDS: DOCUSATE SODIUM 100 MG CAPSULE PO SCH (23:12)
[2018-04-06] MEDS: INSULIN LISPRO 100 UNIT/ML 3 ML VIAL SUBCUT SCH (23:13)
[2018-04-06] MEDS: LANSOPRAZOLE 30 MG TAB.RAP.DR PO SCH (23:13)
[2018-04-07] MEDS: PIPERACILLIN SODIUM/TAZOBACTAM 4.5 GM in NORMAL SALINE 100 ML IV SCH ×4 (02:59→20:25)
[2018-04-07] MEDS: LANSOPRAZOLE 30 MG TAB.RAP.DR PO SCH ×2 (06:09→17:07)
[2018-04-07] MEDS: VANCOMYCIN HCL 1,000 MG in DEXTROSE 5%-WATER 250 ML IV SCH ×2 (06:09→17:07)
[2018-04-07] MEDS: OXYCODONE-ACETAMINOPHEN 5-325 MG TABLET PO PRN ×3 (06:09→18:44)
[2018-04-07] MEDS: HEPARIN SOD (PORCINE) 5,000 UNIT/ML 1 ML SYRINGE SUBCUT SCH ×3 (06:10→21:53)
[2018-04-07 07:29] LABS: ABSOLUTE BASOPHILS # (AUTO) 0.1 10^3/uL (0.0-0.2); ABSOLUTE EOSINOPHILS # (AUTO) 0.1 10^3/uL (0.0-0.6); ABSOLUTE LYMPHOCYTES (AUTO) 2.9 10^3/uL (0.5-4.7); ABSOLUTE MONOCYTES (AUTO) 0.5 10^3/uL (0.1-1.4); ABSOLUTE NEUT (AUTO) 4.7 10^3/uL (1.7-8.2); BASOPHILS % (AUTO) 1.1 % (0-2); HEMATOCRIT 29.3 % (37.9-51.0); LYMPHOCYTES % (AUTO) 34.8 % (13-45); MEAN CORPUSCULAR HEMOGLOBIN 29.6 pg (27.0-33.4); MEAN CORPUSCULAR HGB CONC 34.2 g/dL (32.0-36.0); MEAN CORPUSCULAR VOLUME 87 fl (80-97); MONOCYTES % (AUTO) 6.1 % (3-13); PLATELET COUNT 359 10^3/uL (150-450); RED BLOOD COUNT 3.38 10^6/uL (4.35-5.55); RED CELL DISTRIBUTION WIDTH 12.9 % (11.5-14.0); TOTAL CELLS COUNTED % (AUTO) 100 %; WHITE BLOOD COUNT 8.3 10^3/uL (4.0-10.5)
[2018-04-07 07:48] LABS: ALANINE AMINOTRANSFERASE 17 U/L (21-72); ALKALINE PHOSPHATASE 53 U/L (38-126); ANION GAP 14 (5-19); ASPARTATE AMINO TRANSFERASE 24 U/L (17-59); BILIRUBIN,DIRECT 0.4 mg/dL (0.0-0.4); BILIRUBIN,TOTAL 0.5 mg/dL (0.2-1.3); BLOOD UREA NITROGEN 32 mg/dL (7-20); CALCIUM 8.8 mg/dL (8.4-10.2); CARBON DIOXIDE 30 mmol/L (22-30); CHLORIDE 97 mmol/L (98-107); CHOLESTEROL 101.88 mg/dL (0-200); GLUCOSE 97 mg/dL (75-110); SODIUM 140.7 mmol/L (137-145); TOTAL PROTEIN 6.4 g/dL (6.3-8.2); TRIGLYCERIDES 229 mg/dL (<150)
[2018-04-07 07:58] LABS: DIRECT LDL 61 mg/dL (<100)
[2018-04-07 08:03] LABS: VLDL CHOLESTEROL 45.8 mg/dL (10-31)
--- NOTE | 2018-04-07 09:49 | PDOC PROGRESS REPORT ---
Subjective Progress Note for:: 04/07/18 Subjective:: minimal pains Reason For Visit: OSTEOMYELITIS Physical Exam Vital Signs: Temp Pulse Resp BP Pulse Ox 98.6 F 63 16 131/60 H 96 04/07/18 07:26 04/07/18 07:26 04/07/18 07:26 04/07/18 07:26 04/07/18 07:26 Intake & Output 04/06/18 04/07/18 04/08/18 06:59 06:59 06:59 Intake Total 2480 250 Output Total 1155 Balance 1325 250 Weight 105.3 kg great toe amp site looks dry Results Laboratory Results: 04/07/18 06:03 04/07/18 06:03 04/07/18 04/07/18 06:03 06:03 WBC 8.3 RBC 3.38 L Hgb 10.0 L Hct 29.3 L MCV 87 MCH 29.6 MCHC 34.2 RDW 12.9 Plt Count 359 Seg Neutrophils % 57.0 Lymphocytes % 34.8 Monocytes % 6.1 Eosinophils % 1.0 Basophils % 1.1 Absolute Neutrophils 4.7 Absolute Lymphocytes 2.9 Absolute Monocytes 0.5 Absolute Eosinophils 0.1 Absolute Basophils 0.1 Sodium 140.7 Potassium 4.0 Chloride 97 L Carbon Dioxide 30 Anion Gap 14 BUN 32 H Creatinine 1.80 H Est GFR ( Amer) 46 L Est GFR (Non-Af Amer) 38 L Glucose 97 Calcium 8.8 Magnesium 1.8 Total Bilirubin 0.5 AST 24 ALT 17 L Alkaline Phosphatase 53 Total Protein 6.4 Albumin 3.0 L Triglycerides 229 H Cholesterol 101.88 LDL Cholesterol Direct 61 VLDL Cholesterol 45.8 H HDL Cholesterol 21 L Impressions: Toe X-Ray 04/06/18 12:05 IMPRESSION: 1. Interval reduction of the previously seen dislocation of the distal phalanx of the left great toe. 2. There is new erosive loss of mineralization of the distal phalanx, concerning for osteomyelitis. 3. Extensive soft tissue swelling about the left great toe with subcutaneous emphysema, findings concerning for gas-forming infection. Assessment & Plan - Time Time Spent with patient: 15-24 minutes - Inpatient Certification Medical Necessity: Need for IV Antibiotics - Plan Summary Plan Summary: Start wet to dry dressings today q 12 hrs. Will tie sutures for delayed closure in 48 hrs. Continue IV antibiotics
[2018-04-07] MEDS: DOCUSATE SODIUM 100 MG CAPSULE PO SCH ×2 (09:52→17:06)
[2018-04-07] MEDS: FENOFIBRATE NANOCRYSTALLIZED 145 MG TABLET PO SCH (09:53)
[2018-04-07] MEDS: INSULIN LISPRO 100 UNIT/ML 3 ML VIAL SUBCUT SCH ×3 (09:53→17:07)
[2018-04-07] MEDS: METOPROLOL SUCCINATE 50 MG TAB.SR.24H PO SCH (09:53)
[2018-04-07] MEDS: COLLAGENASE CLOSTRIDIUM HIST. OINT 30 GM TOP SCH (10:05)
[2018-04-07] MEDS ORDERED: GLYCOPYRROLATE 1 MG/5 ML SYRINGE ONE (14:08)
[2018-04-07] MEDS ORDERED: PHENYLEPHRINE HCL INJ/PF 10 MG/1 ML SDV ONE (14:08)
[2018-04-07] MEDS ORDERED: SUCCINYLCHOLINE CHLORIDE INJ 200 MG/10 ML VIAL ONE (14:08)
--- NOTE | 2018-04-07 15:38 | RADIOLOGY REPORT (SQ) ---
EXAM DESCRIPTION: MRI RT LOWER EXTREMITY WITHOUT COMPLETED DATE/TIME: 04/07/2018 3:21 pm REASON FOR STUDY: Rule out osteomyelitis right great toe pain and swelling right great toe, blister, evaluate for osteomyelitis COMPARISON: Right great toe films 04/06/2018 TECHNIQUE: Multiplanar imaging of the right great toe to include fat and fluid sensitive sequences. LIMITATIONS: Motion artifact on some of the pulse sequences FINDINGS: There is abnormal marrow edema throughout the distal phalanx, right great toe with minimal bony cortical loss along the medial and plantar edge of the phalanx. There is medial skin thickenin g and subcutaneous edema in the toe. The interphalangeal joint demonstrates no effusion. Subcortical edema in the proximal phalanx at the interphalangeal joint may represent early involvement with osteomyelitis. There is osteoarthritis at the 1st metatarsophalangeal joint between the lateral sesamoid bone and un dersurface of the 1st metatarsal head. The great toe flexor and extensor tendons are intact. Mild forefoot subcutaneous edema is present. No soft tissue abscess IMPRESSION: Marrow edema in the distal phalanx right great toe worrisome for osteomyelitis Medial right great toe cellulitis Although there is no interphalangeal joint effusion at the great toe, there is some abnormal marrow s ignal in the proximal phalanx at the interphalangeal joint. Early involvement with osteomyelitis may be present. 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
[2018-04-07] MEDS: NORMAL SALINE 1000 ML 1,000 ML IV PRN (19:53)
[2018-04-07] MEDS: ACETAMINOPHEN 325 MG TABLET PO PRN (20:24)
[2018-04-07] MEDS: INSULIN GLARGINE,HUM.REC.ANLOG 300 UNIT/3 ML INSULN.PEN SUBCUT SCH (21:53)
[2018-04-08] MEDS: OXYCODONE-ACETAMINOPHEN 5-325 MG TABLET PO PRN ×4 (00:51→19:30)
[2018-04-08] MEDS: PIPERACILLIN SODIUM/TAZOBACTAM 4.5 GM in NORMAL SALINE 100 ML IV SCH ×4 (02:07→21:38)
[2018-04-08] MEDS: HEPARIN SOD (PORCINE) 5,000 UNIT/ML 1 ML SYRINGE SUBCUT SCH ×3 (05:53→21:38)
[2018-04-08] MEDS: LANSOPRAZOLE 30 MG TAB.RAP.DR PO SCH ×2 (05:53→16:56)
[2018-04-08] MEDS: VANCOMYCIN HCL 1,000 MG in DEXTROSE 5%-WATER 250 ML IV SCH ×2 (05:57→18:51)
[2018-04-08 06:49] LABS: ABSOLUTE BASOPHILS # (AUTO) 0.2 10^3/uL (0.0-0.2); ABSOLUTE EOSINOPHILS # (AUTO) 0.1 10^3/uL (0.0-0.6); ABSOLUTE LYMPHOCYTES (AUTO) 2.8 10^3/uL (0.5-4.7); ABSOLUTE MONOCYTES (AUTO) 0.5 10^3/uL (0.1-1.4); ABSOLUTE NEUT (AUTO) 3.2 10^3/uL (1.7-8.2); BASOPHILS % (AUTO) 2.3 % (0-2); EOSINOPHILS % (AUTO) 0.8 % (0-6); HEMOGLOBIN 10.7 g/dL (13.5-17.0); MEAN CORPUSCULAR HEMOGLOBIN 30.3 pg (27.0-33.4); MEAN CORPUSCULAR HGB CONC 34.4 g/dL (32.0-36.0); MEAN CORPUSCULAR VOLUME 88 fl (80-97); MONOCYTES % (AUTO) 7.8 % (3-13); PLATELET COUNT 381 10^3/uL (150-450); RED BLOOD COUNT 3.52 10^6/uL (4.35-5.55); RED CELL DISTRIBUTION WIDTH 12.8 % (11.5-14.0); SEGMENTED NEUTROPHILS % (AUTO) 47.1 % (42-78); TOTAL CELLS COUNTED % (AUTO) 100 %; WHITE BLOOD COUNT 6.8 10^3/uL (4.0-10.5)
[2018-04-08 07:09] LABS: ALANINE AMINOTRANSFERASE 15 U/L (21-72); ALBUMIN 3.3 g/dL (3.5-5.0); ALKALINE PHOSPHATASE 59 U/L (38-126); ANION GAP 15 (5-19); ASPARTATE AMINO TRANSFERASE 26 U/L (17-59); BILIRUBIN,DIRECT 0.4 mg/dL (0.0-0.4); BILIRUBIN,TOTAL 0.7 mg/dL (0.2-1.3); BLOOD UREA NITROGEN 24 mg/dL (7-20); CALCIUM 9.2 mg/dL (8.4-10.2); CARBON DIOXIDE 26 mmol/L (22-30); CHLORIDE 100 mmol/L (98-107); GLUCOSE 98 mg/dL (75-110); POTASSIUM 3.8 mmol/L (3.6-5.0); SODIUM 141.2 mmol/L (137-145); VANCOMYCIN,TROUGH 12.8 ug/mL (5.0-20.0)
[2018-04-08] MEDS: INSULIN LISPRO 100 UNIT/ML 3 ML VIAL SUBCUT SCH ×3 (07:56→16:57)
--- NOTE | 2018-04-08 10:14 | PDOC PROGRESS REPORT ---
Subjective Progress Note for:: 04/08/18 Subjective:: 04/07/2018. Day 1 status post left great toe resection due to osteomyelitis. Otherwise no acute events overnight patient is feeling much better and denying any fever, chills, nausea, vomiting, diarrhea or any constipation. His pain is better than yesterday controlled with narcotics. His hemoglobin A1c is 12 and is stating that he is compliant with his medication. Plan is to get a right foot MRI to rule out any osteomyelitis. He may go back to the OR on Tuesday for closure of the wound. Follow-up cultures and continue IV antibiotics. 04/08/2018. No acute events overnight. Patient stating that he could not get a good night sleep because he was tossing and turning because of anxiety. He is p.o. tolerant and having normal bladder bowel functions. His bilateral feet pain has improved and he is denying having any fever, nausea, vomiting, diarrhea , constipation or any urinary symptoms. He is day 2 status post left great toe amputation for osteomyelitis. He also had an MRI of the right foot which showed osteomyelitis of right great toe. Surgery still following and will see if they want to do any procedures on the right foot otherwise patient will need to be sent home on IV antibiotics based on the findings of blood culture. Mimi he is on IV Vanco and Zosyn day #3. Systolic blood pressure has been in 120s-160, he has been afebrile since admission, pulse rate of less than 100, saturating 100% on room air. CBC CMP within normal limits except for chronic anemia and his creatinine is trending down from 1.80-1.60, blood glucose has been ranging from 98-146. Fasting blood glucose of 98. Culture from left great toe is growing group B streptococcus sensitivity pending, Reason For Visit: OSTEOMYELITIS Physical Exam Vital Signs: Temp Pulse Resp BP Pulse Ox 98.7 F 76 14 160/76 H 97 04/08/18 07:32 04/08/18 09:34 04/08/18 09:34 04/08/18 07:32 04/08/18 09:34 Intake & Output 04/07/18 04/08/18 04/09/18 06:59 06:59 06:59 Intake Total 2480 2305 Output Total 1155 1750 Balance 1325 555 Weight 105.3 kg 103.2 kg Results Laboratory Results: 04/08/18 05:56 04/08/18 05:56 04/08/18 04/08/18 05:56 05:56 WBC 6.8 RBC 3.52 L Hgb 10.7 L Hct 31.0 L MCV 88 MCH 30.3 MCHC 34.4 RDW 12.8 Plt Count 381 Seg Neutrophils % 47.1 Lymphocytes % 42.0 Monocytes % 7.8 Eosinophils % 0.8 Basophils % 2.3 H Absolute Neutrophils 3.2 Absolute Lymphocytes 2.8 Absolute Monocytes 0.5 Absolute Eosinophils 0.1 Absolute Basophils 0.2 Sodium 141.2 Potassium 3.8 Chloride 100 Carbon Dioxide 26 Anion Gap 15 BUN 24 H Creatinine 1.60 H Est GFR ( Amer) 52 L Est GFR (Non-Af Amer) 43 L Glucose 98 Calcium 9.2 Total Bilirubin 0.7 AST 26 ALT 15 L Alkaline Phosphatase 59 Total Protein 7.0 Albumin 3.3 L Impressions: Toe X-Ray 04/06/18 12:05 IMPRESSION: 1. Interval reduction of the previously seen dislocation of the distal phalanx of the left great toe. 2. There is new erosive loss of mineralization of the distal phalanx, concerning for osteomyelitis. 3. Extensive soft tissue swelling about the left great toe with subcutaneous emphysema, findings concerning for gas-forming infection. Lower Extremity MRI 04/07/18 00:00 IMPRESSION: Marrow edema in the distal phalanx right great toe worrisome for osteomyelitis Medial right great toe cellulitis Although there is no interphalangeal joint effusion at the great toe, there is some abnormal marrow signal in the proximal phalanx at the interphalangeal joint. Early involvement with osteomyelitis may be present. 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 X-ray positive for osteomyelitis. Day 2 postop for left great toe amputation. Preliminary wound culture growing group B beta Streptococcus. Day 3 of Vanco and Zosyn. Continue wound care, follow-up blood and wound culture. Optimize blood sugar. (2) Toe osteomyelitis, right Is this a current diagnosis for this admission?: Yes Plan: Right toe osteomyelitis likely due to diabetic complication. X-ray on admission negative MRI of right great toe showed possible osteomyelitis. Continue empiric Vanco and Zosyn. Surgery on board, if no surgical intervention patient will need long-term IV antibiotics as an outpatient. Follow-up cultures. (3) Hyperlipidemia Is this a current diagnosis for this admission?: Yes Plan: ASCVD: 41%. High intensity statins. Diet and lifestyle modification. (4) Hypertension Is this a current diagnosis for this admission?: Yes Plan: Systolic blood pressure 122-160. Retart home meds. Monitor vitals adjust meds as needed. (5) Diabetes Is this a current diagnosis for this admission?: Yes Plan: Controlled. Long-acting insulin, pre-meal insulin, sliding scale insulin, Accu-Chek, diabetic diet, diabetic education. Will adjust dosage as needed.
[2018-04-08] MEDS: INSULIN LISPRO 100 UNIT/ML 3 ML VIAL SUBCUT PRN ×2 (11:14→16:56)
[2018-04-08] MEDS: DOCUSATE SODIUM 100 MG CAPSULE PO SCH ×2 (11:15→18:51)
[2018-04-08] MEDS: METOPROLOL SUCCINATE 50 MG TAB.SR.24H PO SCH (11:15)
[2018-04-08] MEDS: COLLAGENASE CLOSTRIDIUM HIST. OINT 30 GM TOP SCH (11:16)
[2018-04-08] MEDS: FENOFIBRATE NANOCRYSTALLIZED 145 MG TABLET PO SCH (11:17)
[2018-04-08] MEDS: NORMAL SALINE 1000 ML 1,000 ML IV PRN (13:07)
[2018-04-08] MEDS ORDERED: INSULIN LISPRO 100 UNIT/ML 3 ML VIAL SUBCUT SCH (16:00)
--- NOTE | 2018-04-08 19:38 | PDOC PROGRESS REPORT ---
Subjective Progress Note for:: 04/08/18 Subjective:: left foot wound just redressed by nurses and told to be without problems. Will change dressings tomorrow. I was also told by hospitalist that he ordered an MRI of tf the opposite right foot which showed Osteomyelitis right great toe. Reason For Visit: OSTEOMYELITIS Physical Exam Vital Signs: Temp Pulse Resp BP Pulse Ox 98.5 F 66 16 138/69 H 97 04/08/18 15:23 04/08/18 15:23 04/08/18 15:23 04/08/18 15:23 04/08/18 15:23 Intake & Output 04/07/18 04/08/18 04/09/18 06:59 06:59 06:59 Intake Total 2480 2305 2573 Output Total 1155 1750 Balance 3385 842 4986 Weight 105.3 kg 103.2 kg Exam: left foot not obviously swollen Results Laboratory Results: 04/08/18 05:56 04/08/18 05:56 04/08/18 04/08/18 05:56 05:56 WBC 6.8 RBC 3.52 L Hgb 10.7 L Hct 31.0 L MCV 88 MCH 30.3 MCHC 34.4 RDW 12.8 Plt Count 381 Seg Neutrophils % 47.1 Lymphocytes % 42.0 Monocytes % 7.8 Eosinophils % 0.8 Basophils % 2.3 H Absolute Neutrophils 3.2 Absolute Lymphocytes 2.8 Absolute Monocytes 0.5 Absolute Eosinophils 0.1 Absolute Basophils 0.2 Sodium 141.2 Potassium 3.8 Chloride 100 Carbon Dioxide 26 Anion Gap 15 BUN 24 H Creatinine 1.60 H Est GFR ( Amer) 52 L Est GFR (Non-Af Amer) 43 L Glucose 98 Calcium 9.2 Total Bilirubin 0.7 AST 26 ALT 15 L Alkaline Phosphatase 59 Total Protein 7.0 Albumin 3.3 L Impressions: Toe X-Ray 04/06/18 12:05 IMPRESSION: 1. Interval reduction of the previously seen dislocation of the distal phalanx of the left great toe. 2. There is new erosive loss of mineralization of the distal phalanx, concerning for osteomyelitis. 3. Extensive soft tissue swelling about the left great toe with subcutaneous emphysema, findings concerning for gas-forming infection. Lower Extremity MRI 04/07/18 00:00 IMPRESSION: Marrow edema in the distal phalanx right great toe worrisome for osteomyelitis Medial right great toe cellulitis Although there is no interphalangeal joint effusion at the great toe, there is some abnormal marrow signal in the proximal phalanx at the interphalangeal joint. Early involvement with osteomyelitis may be present. 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
[2018-04-08] MEDS: INSULIN GLARGINE,HUM.REC.ANLOG 300 UNIT/3 ML INSULN.PEN SUBCUT SCH (21:38)
[2018-04-09] MEDS: OXYCODONE-ACETAMINOPHEN 5-325 MG TABLET PO PRN ×4 (00:59→20:22)
[2018-04-09] MEDS: PIPERACILLIN SODIUM/TAZOBACTAM 4.5 GM in NORMAL SALINE 100 ML IV SCH ×4 (03:34→21:14)
[2018-04-09] MEDS: NORMAL SALINE 1000 ML 1,000 ML IV PRN (03:36)
[2018-04-09 05:22] LABS: HEMATOCRIT 29.3 % (37.9-51.0); MEAN CORPUSCULAR HEMOGLOBIN 29.9 pg (27.0-33.4); MEAN CORPUSCULAR HGB CONC 34.2 g/dL (32.0-36.0); MEAN CORPUSCULAR VOLUME 88 fl (80-97); PLATELET COUNT 402 10^3/uL (150-450); RED BLOOD COUNT 3.35 10^6/uL (4.35-5.55); RED CELL DISTRIBUTION WIDTH 12.9 % (11.5-14.0); WHITE BLOOD COUNT 6.3 10^3/uL (4.0-10.5)
[2018-04-09] MEDS: VANCOMYCIN HCL 1,000 MG in DEXTROSE 5%-WATER 250 ML IV SCH ×2 (05:34→17:07)
[2018-04-09] MEDS: HEPARIN SOD (PORCINE) 5,000 UNIT/ML 1 ML SYRINGE SUBCUT SCH ×3 (05:34→21:11)
[2018-04-09] MEDS: LANSOPRAZOLE 30 MG TAB.RAP.DR PO SCH ×2 (05:34→17:06)
[2018-04-09 05:37] LABS: ALANINE AMINOTRANSFERASE 18 U/L (21-72); ALKALINE PHOSPHATASE 56 U/L (38-126); ANION GAP 13 (5-19); ASPARTATE AMINO TRANSFERASE 32 U/L (17-59); BILIRUBIN,DIRECT 0.4 mg/dL (0.0-0.4); BILIRUBIN,TOTAL 0.5 mg/dL (0.2-1.3); BLOOD UREA NITROGEN 19 mg/dL (7-20); CALCIUM 9.1 mg/dL (8.4-10.2); CARBON DIOXIDE 25 mmol/L (22-30); CHLORIDE 103 mmol/L (98-107); GLUCOSE 106 mg/dL (75-110); POTASSIUM 4.4 mmol/L (3.6-5.0); SODIUM 140.5 mmol/L (137-145); TOTAL PROTEIN 6.5 g/dL (6.3-8.2)
[2018-04-09 06:12] LABS: ABSOLUTE LYMPHOCYTES# (MANUAL) 2.9 10^3/uL (0.5-4.7); ABSOLUTE MONOCYTES # (MANUAL) 0.3 10^3/uL (0.1-1.4); ABSOLUTE NEUTROPHILS# (MANUAL) 3.1 10^3/uL (1.7-8.2); BASOPHILS % (MANUAL) 1 % (0-2); EOSINOPHILS % (MANUAL) 0 % (0-6); LYMPHOCYTES % (MANUAL) 46 % (13-45); MONOCYTES % (MANUAL) 4 % (3-13); SEGMENTED NEUTROPHILS % (MAN) 49 % (42-78); TOTAL CELLS COUNTED 100
[2018-04-09 06:15] LABS: HYPOCHROMASIA 1+; OVALOCYTES SLIGHT; TOXIC GRANULATION 1+
[2018-04-09 06:16] LABS: PLATELET COMMENT ADEQUATE; ROULEAUX SLIGHT
[2018-04-09] MEDS: DOCUSATE SODIUM 100 MG CAPSULE PO SCH ×2 (09:01→17:09)
[2018-04-09] MEDS: METOPROLOL SUCCINATE 50 MG TAB.SR.24H PO SCH (09:01)
[2018-04-09] MEDS: INSULIN LISPRO 100 UNIT/ML 3 ML VIAL SUBCUT SCH ×3 (09:01→17:05)
[2018-04-09] MEDS: FENOFIBRATE NANOCRYSTALLIZED 145 MG TABLET PO SCH (09:02)
[2018-04-09] MEDS: COLLAGENASE CLOSTRIDIUM HIST. OINT 30 GM TOP SCH (09:03)
[2018-04-09] MEDS: INSULIN LISPRO 100 UNIT/ML 3 ML VIAL SUBCUT PRN ×2 (11:41→17:06)
--- NOTE | 2018-04-09 13:46 | PDOC PROGRESS REPORT ---
Subjective Progress Note for:: 04/09/18 Subjective:: 04/07/2018. Day 1 status post left great toe resection due to osteomyelitis. Otherwise no acute events overnight patient is feeling much better and denying any fever, chills, nausea, vomiting, diarrhea or any constipation. His pain is better than yesterday controlled with narcotics. His hemoglobin A1c is 12 and is stating that he is compliant with his medication. Plan is to get a right foot MRI to rule out any osteomyelitis. He may go back to the OR on Tuesday for closure of the wound. Follow-up cultures and continue IV antibiotics. 04/08/2018. No acute events overnight. Patient stating that he could not get a good night sleep because he was tossing and turning because of anxiety. He is p.o. tolerant and having normal bladder bowel functions. His bilateral feet pain has improved and he is denying having any fever, nausea, vomiting, diarrhea , constipation or any urinary symptoms. He is day 2 status post left great toe amputation for osteomyelitis. He also had an MRI of the right foot which showed osteomyelitis of right great toe. Surgery still following and will see if they want to do any procedures on the right foot otherwise patient will need to be sent home on IV antibiotics based on the findings of blood culture. Currently he is on IV Vanco and Zosyn day #3. Systolic blood pressure has been in 120s-160, he has been afebrile since admission, pulse rate of less than 100, saturating 100% on room air. CBC CMP within normal limits except for chronic anemia and his creatinine is trending down from 1.80-1.60, blood glucose has been ranging from 98-146. Fasting blood glucose of 98. Culture from left great toe is growing group B streptococcus sensitivity pending, 04/09/2018. Day 3 status post left great toe amputation for osteomyelitis. No acute events overnight. Patient had a good night sleep, ambulatory, p.o. tolerant, normal bowel and bladder function, denies any fever, chills, nausea, vomiting, diarrhea, constipation or any urinary symptoms. Reason For Visit: OSTEOMYELITIS Physical Exam Vital Signs: Temp Pulse Resp BP Pulse Ox 98.3 F 66 16 144/66 H 95 04/09/18 11:20 04/09/18 11:20 04/09/18 11:20 04/09/18 11:20 04/09/18 11:20 Intake & Output 04/08/18 04/09/18 04/10/18 06:59 06:59 06:59 Intake Total 2305 4709 970 Output Total 1750 955 Balance 555 3754 970 Weight 103.2 kg 103.5 kg General appearance: PRESENT: no acute distress, well-developed, well-nourished Head exam: PRESENT: atraumatic, normocephalic Neck exam: ABSENT: carotid bruit, JVD, lymphadenopathy, thyromegaly Respiratory exam: PRESENT: clear to auscultation donaldo. ABSENT: rales, rhonchi, wheezes Cardiovascular exam: PRESENT: RRR. ABSENT: diastolic murmur, rubs, systolic murmur Pulses: PRESENT: normal dorsalis pedis pul, +1 pedal pulses bilateral GI/Abdominal exam: PRESENT: normal bowel sounds, soft. ABSENT: distended, guarding, mass, organolmegaly, rebound, tenderness Neurological exam: PRESENT: alert, awake, oriented to person, oriented to place , oriented to time, oriented to situation, CN II-XII grossly intact. ABSENT: motor sensory deficit Results Laboratory Results: 04/09/18 04:03 04/09/18 04:03 04/09/18 04/09/18 04:03 04:03 WBC 6.3 RBC 3.35 L Hgb 10.0 L Hct 29.3 L MCV 88 MCH 29.9 MCHC 34.2 RDW 12.9 Plt Count 402 Seg Neutrophils % Not Reportable Lymphocytes % Not Reportable Monocytes % Not Reportable Eosinophils % Not Reportable Basophils % Not Reportable Absolute Neutrophils Not Reportable Absolute Lymphocytes Not Reportable Absolute Monocytes Not Reportable Absolute Eosinophils Not Reportable Absolute Basophils Not Reportable Sodium 140.5 Potassium 4.4 Chloride 103 Carbon Dioxide 25 Anion Gap 13 BUN 19 Creatinine 1.26 H Est GFR ( Amer) > 60 Est GFR (Non-Af Amer) 57 L Glucose 106 Calcium 9.1 Total Bilirubin 0.5 AST 32 ALT 18 L Alkaline Phosphatase 56 Total Protein 6.5 Albumin 3.0 L Impressions: Toe X-Ray 04/06/18 12:05 IMPRESSION: 1. Interval reduction of the previously seen dislocation of the distal phalanx of the left great toe. 2. There is new erosive loss of mineralization of the distal phalanx, concerning for osteomyelitis. 3. Extensive soft tissue swelling about the left great toe with subcutaneous emphysema, findings concerning for gas-forming infection. Lower Extremity MRI 04/07/18 00:00 IMPRESSION: Marrow edema in the distal phalanx right great toe worrisome for osteomyelitis Medial right great toe cellulitis Although there is no interphalangeal joint effusion at the great toe, there is some abnormal marrow signal in the proximal phalanx at the interphalangeal joint. Early involvement with osteomyelitis may be present. 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 X-ray positive for osteomyelitis. Day 3 postop for left great toe amputation. Preliminary wound culture growing group B beta Streptococcus. Day 4 of Vanco and Zosyn. Blood cultures negative x48 and 72 hours. Wound culture from left foot positive for gram-positive Streptococcus, gram- positive cocci in clusters pending sensitivity. Continue wound care, follow-up blood and wound culture. Optimize blood sugar. (2) Toe osteomyelitis, right Is this a current diagnosis for this admission?: Yes Plan: Right toe osteomyelitis likely due to diabetic complication. X-ray on admission negative MRI of right great toe showed possible osteomyelitis. Continue empiric Vanco and Zosyn. Surgery on board, if no surgical intervention patient will need long-term IV antibiotics as an outpatient. Follow-up cultures. (3) Hyperlipidemia Is this a current diagnosis for this admission?: Yes Plan: ASCVD: 41%. High intensity statins. Diet and lifestyle modification. (4) Hypertension Is this a current diagnosis for this admission?: Yes Plan: Systolic blood pressure 128-160, temperature 98.3, pulse 66-83, SPO2 95% on room air White blood cells 6.3, hemoglobin 10.0, platelet 402, sodium 140.5, potassium 4.4 Continue Coreg, start on low-dose lisinopril. Monitor vitals adjust meds as needed. (5) Diabetes Is this a current diagnosis for this admission?: Yes Plan: Controlled. Long-acting insulin, pre-meal insulin, sliding scale insulin, Accu-Chek, diabetic diet, diabetic education. Fasting blood glucose 106, POC 108 - 240 Will adjust dosage as needed. (6) PAWEL (acute kidney injury) Is this a current diagnosis for this admission?: Yes Plan: Acute on chronic CKD. Baseline 1.26. Worsening likely due to vancomycin. Improving Sodium 140, potassium 4.4, chloride 103, BUN 19, creatinine 1.26 from 1.5.
[2018-04-09] MEDS: LISINOPRIL 5 MG TABLET PO SCH (14:15)
--- NOTE | 2018-04-09 19:56 | PDOC PROGRESS REPORT ---
Subjective Progress Note for:: 04/09/18 Subjective:: no pains Reason For Visit: OSTEOMYELITIS Physical Exam Vital Signs: Temp Pulse Resp BP Pulse Ox 98.7 F 60 16 129/66 H 98 04/09/18 15:19 04/09/18 15:19 04/09/18 15:19 04/09/18 15:19 04/09/18 15:19 Intake & Output 04/08/18 04/09/18 04/10/18 06:59 06:59 06:59 Intake Total 2305 4709 2320 Output Total 1750 955 Balance 555 3754 2320 Weight 103.2 kg 103.5 kg Exam: left great toe amputation looks better. Right great toe mild inflammation with osteo Results Laboratory Results: 04/09/18 04:03 04/09/18 04:03 04/09/18 04/09/18 04:03 04:03 WBC 6.3 RBC 3.35 L Hgb 10.0 L Hct 29.3 L MCV 88 MCH 29.9 MCHC 34.2 RDW 12.9 Plt Count 402 Seg Neutrophils % Not Reportable Lymphocytes % Not Reportable Monocytes % Not Reportable Eosinophils % Not Reportable Basophils % Not Reportable Absolute Neutrophils Not Reportable Absolute Lymphocytes Not Reportable Absolute Monocytes Not Reportable Absolute Eosinophils Not Reportable Absolute Basophils Not Reportable Sodium 140.5 Potassium 4.4 Chloride 103 Carbon Dioxide 25 Anion Gap 13 BUN 19 Creatinine 1.26 H Est GFR ( Amer) > 60 Est GFR (Non-Af Amer) 57 L Glucose 106 Calcium 9.1 Total Bilirubin 0.5 AST 32 ALT 18 L Alkaline Phosphatase 56 Total Protein 6.5 Albumin 3.0 L Impressions: Toe X-Ray 04/06/18 12:05 IMPRESSION: 1. Interval reduction of the previously seen dislocation of the distal phalanx of the left great toe. 2. There is new erosive loss of mineralization of the distal phalanx, concerning for osteomyelitis. 3. Extensive soft tissue swelling about the left great toe with subcutaneous emphysema, findings concerning for gas-forming infection. Lower Extremity MRI 04/07/18 00:00 IMPRESSION: Marrow edema in the distal phalanx right great toe worrisome for osteomyelitis Medial right great toe cellulitis Although there is no interphalangeal joint effusion at the great toe, there is some abnormal marrow signal in the proximal phalanx at the interphalangeal joint. Early involvement with osteomyelitis may be present. 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
[2018-04-09] MEDS: INSULIN GLARGINE,HUM.REC.ANLOG 300 UNIT/3 ML INSULN.PEN SUBCUT SCH (21:14)
[2018-04-10] MEDS: OXYCODONE-ACETAMINOPHEN 5-325 MG TABLET PO PRN ×3 (01:28→16:36)
[2018-04-10] MEDS: NORMAL SALINE 1000 ML 1,000 ML IV PRN ×2 (01:30→16:21)
[2018-04-10] MEDS: PIPERACILLIN SODIUM/TAZOBACTAM 4.5 GM in NORMAL SALINE 100 ML IV SCH ×4 (03:53→20:37)
[2018-04-10] MEDS: HEPARIN SOD (PORCINE) 5,000 UNIT/ML 1 ML SYRINGE SUBCUT SCH ×3 (05:06→21:32)
[2018-04-10] MEDS: LANSOPRAZOLE 30 MG TAB.RAP.DR PO SCH ×2 (05:38→17:44)
[2018-04-10] MEDS: VANCOMYCIN HCL 1,000 MG in DEXTROSE 5%-WATER 250 ML IV SCH ×2 (05:39→17:43)
[2018-04-10 06:14] LABS: ABSOLUTE BASOPHILS # (AUTO) 0.1 10^3/uL (0.0-0.2); ABSOLUTE EOSINOPHILS # (AUTO) 0.1 10^3/uL (0.0-0.6); ABSOLUTE LYMPHOCYTES (AUTO) 2.3 10^3/uL (0.5-4.7); ABSOLUTE MONOCYTES (AUTO) 0.4 10^3/uL (0.1-1.4); BASOPHILS % (AUTO) 1.8 % (0-2); EOSINOPHILS % (AUTO) 0.9 % (0-6); HEMATOCRIT 28.5 % (37.9-51.0); HEMOGLOBIN 9.7 g/dL (13.5-17.0); LYMPHOCYTES % (AUTO) 39.8 % (13-45); MEAN CORPUSCULAR HEMOGLOBIN 29.7 pg (27.0-33.4); MEAN CORPUSCULAR HGB CONC 34.1 g/dL (32.0-36.0); MEAN CORPUSCULAR VOLUME 87 fl (80-97); MONOCYTES % (AUTO) 6.9 % (3-13); PLATELET COUNT 389 10^3/uL (150-450); RED BLOOD COUNT 3.27 10^6/uL (4.35-5.55); RED CELL DISTRIBUTION WIDTH 12.7 % (11.5-14.0); SEGMENTED NEUTROPHILS % (AUTO) 50.6 % (42-78); TOTAL CELLS COUNTED % (AUTO) 100 %; WHITE BLOOD COUNT 5.9 10^3/uL (4.0-10.5)
[2018-04-10 06:35] LABS: ALANINE AMINOTRANSFERASE 13 U/L (21-72); ALBUMIN 3.1 g/dL (3.5-5.0); ALKALINE PHOSPHATASE 54 U/L (38-126); ANION GAP 12 (5-19); ASPARTATE AMINO TRANSFERASE 47 U/L (17-59); BILIRUBIN,DIRECT 0.3 mg/dL (0.0-0.4); BILIRUBIN,TOTAL 0.3 mg/dL (0.2-1.3); BLOOD UREA NITROGEN 16 mg/dL (7-20); CALCIUM 8.9 mg/dL (8.4-10.2); CARBON DIOXIDE 26 mmol/L (22-30); CHLORIDE 103 mmol/L (98-107); GLUCOSE 230 mg/dL (75-110); POTASSIUM 4.6 mmol/L (3.6-5.0); SODIUM 140.8 mmol/L (137-145); TOTAL PROTEIN 6.8 g/dL (6.3-8.2)
[2018-04-10 06:37] LABS: VANCOMYCIN,TROUGH 16.6 ug/mL (5.0-20.0)
[2018-04-10] MEDS: INSULIN LISPRO 100 UNIT/ML 3 ML VIAL SUBCUT SCH ×3 (08:39→17:35)
[2018-04-10] MEDS: DOCUSATE SODIUM 100 MG CAPSULE PO SCH ×2 (09:28→17:44)
[2018-04-10] MEDS: COLLAGENASE CLOSTRIDIUM HIST. OINT 30 GM TOP SCH (09:28)
[2018-04-10] MEDS: LISINOPRIL 5 MG TABLET PO SCH ×2 (09:39→12:08)
[2018-04-10] MEDS: METOPROLOL SUCCINATE 50 MG TAB.SR.24H PO SCH (09:39)
[2018-04-10] MEDS: FENOFIBRATE NANOCRYSTALLIZED 145 MG TABLET PO SCH (09:40)
[2018-04-10] MEDS ORDERED: ONDANSETRON HCL INJ/PF 4 MG/2 ML SDV IV PRN ×2 (10:00→12:34)
--- NOTE | 2018-04-10 10:53 | PDOC PROGRESS REPORT ---
Subjective Progress Note for:: 04/10/18 Subjective:: 04/07/2018. Day 1 status post left great toe resection due to osteomyelitis. Otherwise no acute events overnight patient is feeling much better and denying any fever, chills, nausea, vomiting, diarrhea or any constipation. His pain is better than yesterday controlled with narcotics. His hemoglobin A1c is 12 and is stating that he is compliant with his medication. Plan is to get a right foot MRI to rule out any osteomyelitis. He may go back to the OR on Tuesday for closure of the wound. Follow-up cultures and continue IV antibiotics. 04/08/2018. No acute events overnight. Patient stating that he could not get a good night sleep because he was tossing and turning because of anxiety. He is p.o. tolerant and having normal bladder bowel functions. His bilateral feet pain has improved and he is denying having any fever, nausea, vomiting, diarrhea , constipation or any urinary symptoms. He is day 2 status post left great toe amputation for osteomyelitis. He also had an MRI of the right foot which showed osteomyelitis of right great toe. Surgery still following and will see if they want to do any procedures on the right foot otherwise patient will need to be sent home on IV antibiotics based on the findings of blood culture. Currently he is on IV Vanco and Zosyn day #3. Systolic blood pressure has been in 120s-160, he has been afebrile since admission, pulse rate of less than 100, saturating 100% on room air. CBC CMP within normal limits except for chronic anemia and his creatinine is trending down from 1.80-1.60, blood glucose has been ranging from 98-146. Fasting blood glucose of 98. Culture from left great toe is growing group B streptococcus sensitivity pending, 04/09/2018. Day 3 status post left great toe amputation for osteomyelitis. No acute events overnight. Patient had a good night sleep, ambulatory, p.o. tolerant, normal bowel and bladder function, denies any fever, chills, nausea, vomiting, diarrhea, constipation or any urinary symptoms. 04/15/2018. No acute events overnight. Patient sitting comfortably in his bed waiting for his surgery planned for today. He is stating he had a good night sleep except for frequent interruption for blood draws. He denies any fever, nausea, vomiting, diarrhea, chills, shortness of breath, constipation or any urinary symptoms. Vitals SBP 128-160, temperature 98.6, pulse 66-75 SPO2 98% on RA Labs: WBC 5.9, Hgb 9.7, platelet 389, sodium 140, potassium 4.6, chloride 103, BUN 16, creatinine 1.21, fasting blood glucose 230 Cultures: Left toe wound culture positive for group B beta strep, gram-positive cocci in chains and clusters, pending sensitivity. Reason For Visit: OSTEOMYELITIS Physical Exam Vital Signs: Temp Pulse Resp BP Pulse Ox 98.6 F 61 16 135/69 H 98 04/10/18 07:14 04/10/18 07:14 04/10/18 07:14 04/10/18 07:14 04/10/18 07:14 Intake & Output 04/09/18 04/10/18 04/11/18 06:59 06:59 06:59 Intake Total 4709 2904 250 Output Total 955 300 Balance 3754 2604 250 Weight 103.5 kg 108.4 kg General appearance: PRESENT: no acute distress, well-developed, well-nourished Head exam: PRESENT: atraumatic, normocephalic Respiratory exam: PRESENT: clear to auscultation donaldo. ABSENT: rales, rhonchi, wheezes Pulses: PRESENT: normal dorsalis pedis pul Extremities exam: PRESENT: full ROM. ABSENT: calf tenderness, clubbing, pedal edema Musculoskeletal exam: PRESENT: other - Left foot status post great toe amputation. Wound looks clean no sign of infection. Right great toe plantar aspect ulcer base looks clean no sign of infection on discharge. Neurological exam: PRESENT: alert, awake, oriented to person, oriented to place , oriented to time, oriented to situation, CN II-XII grossly intact. ABSENT: motor sensory deficit Results Laboratory Results: 04/10/18 05:50 04/10/18 05:50 04/10/18 04/10/18 04/10/18 05:50 05:50 05:50 WBC 5.9 RBC 3.27 L Hgb 9.7 L Hct 28.5 L MCV 87 MCH 29.7 MCHC 34.1 RDW 12.7 Plt Count 389 Seg Neutrophils % 50.6 Lymphocytes % 39.8 Monocytes % 6.9 Eosinophils % 0.9 Basophils % 1.8 Absolute Neutrophils 3.0 Absolute Lymphocytes 2.3 Absolute Monocytes 0.4 Absolute Eosinophils 0.1 Absolute Basophils 0.1 Sodium 140.8 Potassium 4.6 Chloride 103 Carbon Dioxide 26 Anion Gap 12 BUN 16 Creatinine Cancelled 1.21 Est GFR ( Amer) Cancelled > 60 Est GFR (Non-Af Amer) Cancelled > 60 Glucose 230 H Calcium 8.9 Magnesium Cancelled 1.7 Total Bilirubin 0.3 AST 47 ALT 13 L Alkaline Phosphatase 54 Total Protein 6.8 Albumin 3.1 L 04/06/18 17:22 Foot - Abscess Gram Stain - Final Impressions: Toe X-Ray 04/06/18 12:05 IMPRESSION: 1. Interval reduction of the previously seen dislocation of the distal phalanx of the left great toe. 2. There is new erosive loss of mineralization of the distal phalanx, concerning for osteomyelitis. 3. Extensive soft tissue swelling about the left great toe with subcutaneous emphysema, findings concerning for gas-forming infection. Lower Extremity MRI 04/07/18 00:00 IMPRESSION: Marrow edema in the distal phalanx right great toe worrisome for osteomyelitis Medial right great toe cellulitis Although there is no interphalangeal joint effusion at the great toe, there is some abnormal marrow signal in the proximal phalanx at the interphalangeal joint. Early involvement with osteomyelitis may be present. 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 X-ray positive for osteomyelitis. Day 4 postop for left great toe amputation. Preliminary wound culture growing group B beta Streptococcus. Day 5 of Vanco and Zosyn. Blood cultures negative since admission. Vitals SBP 128-160, temperature 98.6, pulse 66-75 SPO2 98% on RA Labs: WBC 5.9, Hgb 9.7, platelet 389, sodium 140, potassium 4.6, chloride 103, BUN 16, creatinine 1.21, fasting blood glucose 230 Cultures: Left toe wound culture positive for group B beta strep, gram-positive cocci in chains and clusters, pending sensitivity. . Continue wound care, follow-up blood and wound culture. (2) Toe osteomyelitis, right Is this a current diagnosis for this admission?: Yes Plan: Right toe osteomyelitis likely due to diabetic complication. X-ray on admission negative MRI of right great toe showed possible osteomyelitis. Day 5 of Vanco and Zosyn. Plan for right great toe amputation today. Vitals SBP 128-160, temperature 98.6, pulse 66-75 SPO2 98% on RA Labs: WBC 5.9, Hgb 9.7, platelet 389, sodium 140, potassium 4.6, chloride 103, BUN 16, creatinine 1.21, fasting blood glucose 230 Cultures: Left toe wound culture positive for group B beta strep, gram-positive cocci in chains and clusters, pending sensitivity. (3) Hyperlipidemia Is this a current diagnosis for this admission?: Yes Plan: ASCVD: 41%. High intensity statins. Diet and lifestyle modification. (4) Hypertension Is this a current diagnosis for this admission?: Yes Plan: Not controlled. Vitals SBP 128-160, temperature 98.6, pulse 66-75 SPO2 98% on RA Labs: WBC 5.9, Hgb 9.7, platelet 389, sodium 140, potassium 4.6, chloride 103, BUN 16, creatinine 1.21, fasting blood glucose 230 Continue Coreg and lisinopril. Adjust meds as needed. (5) Diabetes Is this a current diagnosis for this admission?: Yes Plan: Not controlled. Labs: WBC 5.9, Hgb 9.7, platelet 389, sodium 140, potassium 4.6, chloride 103, BUN 16, creatinine 1.21, fasting blood glucose 230 Long-acting insulin, pre-meal insulin, sliding scale insulin, Accu-Chek, diabetic diet, diabetic education. Increase Lantus and pre-meal by 2 units. (6) PAWEL (acute kidney injury) Is this a current diagnosis for this admission?: Yes Plan: Acute on chronic CKD. Baseline 1.26. Likely due to vancomycin and lisinopril. Improving not back to baseline. Labs: sodium 140, potassium 4.6, chloride 103, BUN 16, creatinine 1.21
[2018-04-10] MEDS ORDERED: MIDAZOLAM 2 MG/2 ML INJ ONE (11:31)
[2018-04-10] MEDS ORDERED: FENTANYL CITRATE INJ/PF 100 MCG/2 ML AMPUL ONE (11:31)
[2018-04-10] MEDS ORDERED: ONDANSETRON HCL INJ/PF 4 MG/2 ML SDV ONE (11:32)
[2018-04-10] MEDS ORDERED: PROPOFOL INJ 200 MG/20 ML VIAL IV ONE (11:32)
[2018-04-10] MEDS ORDERED: DEXAMETHASONE SOD PHOSPHATE INJ 4 MG/1 ML VIAL ONE (11:32)
[2018-04-10] MEDS ORDERED: LIDOCAINE 1% INJ-PF (10 MG/ML) 30 ML SDV ONE (11:34)
[2018-04-10] MEDS ORDERED: PROMETHAZINE HCL INJ 25 MG/1 ML VIAL IV PRN ×2 (12:34)
[2018-04-10] MEDS ORDERED: OXYCODONE-ACETAMINOPHEN 5-325 MG TABLET PO PRN ×2 (12:34)
[2018-04-10] MEDS ORDERED: FENTANYL CITRATE INJ/PF 100 MCG/2 ML AMPUL IV PRN ×3 (12:34)
[2018-04-10] MEDS ORDERED: MEPERIDINE HCL/PF INJ 25 MG/1 ML DISP.SYRIN IV PRN (12:34)
[2018-04-10] MEDS ORDERED: MORPHINE SULFATE 10 MG/ML INJ IV PRN (12:34)
[2018-04-10] MEDS ORDERED: DIPHENHYDRAMINE HCL 50 MG/ML VIAL IV PRN (12:34)
--- NOTE | 2018-04-10 13:30 | Operative Report ---
Nonrecallable Operative Report DATE OF SURGERY: 04/10/18 PREOPERATIVE DIAGNOSIS: 1. Open wound left foot status post left great toe amputation;. 2. Osteomyelitis of the right great toe POSTOPERATIVE DIAGNOSIS: Same with left foot wound open and unsuitable for primary closure OPERATION: 1. Right great toe amputation with primary closure over Nancy drain fragment. 2. Excisional debridement of skin, subcutaneous tissue, fascia , and partial left great first toe metatarsalectomy , and blood vessels at site of left great toe ray amputation SURGEON: MALATHI BARNETT ANESTHESIA: Other - Via LMA TISSUE REMOVED OR ALTERED: Right great toe; fragments of left foot wound including bone COMPLICATIONS: None ESTIMATED BLOOD LOSS: 25 cc INTRAOPERATIVE FINDINGS: See below PROCEDURE: Patient was taken the main operating room where general anesthesia was induced via LMA. Both feet were exposed, dressings and sutures removed from the left foot wound, and both feet prepped and draped in sterile fashion Surgical plan and surgical timeout were conducted. We directed our attention to the right foot, specifically the right great toe. The toe was amputated at the space using a #10 blade. The periosteum was exposed to the proximal phalanx. The phalanx was formally amputated with the bone cutter. We now amputated the distal right first metatarsal head primarily using bone rongeurs. This was rounded out nicely. The medial digital artery was oversewn with 3-0 Vicryl suture. A small fragment Gokul drain was placed in the medial aspect of the wound, and the wound closed primarily with 5 interrupted vertical mattress 3-0 Ethilon sutures. Left foot now addressed. The wound was significant for markedly viable subcutaneous tissue fascia etc. so this was all debrided using rongeurs. The first metatarsal head had already been transected. We took the metatarsal bone back several centimeters, getting to more viable, bleeding bone. The medial digital artery was oversewn with a 3-0 Vicryl suture wound irrigated. Options for closure were considered. To the surgeon, the wound was contaminated , with a lot of nonviable tissue but no antwan pus. I felt that a delayed closure would be most appropriate likely installing a wound VAC in 24-48 hours. Therefore the left right ray amputation site was packed with iodoform packing. Both feet were dressed with Xeroform 4 x 4 between the toes and Kerlix dressings. Patient tolerated the procedure well, extubated, and taken recovery in stable condition.
[2018-04-10] MEDS: FENTANYL CITRATE INJ/PF 100 MCG/2 ML AMPUL ONE ×2 (13:34→13:40)
[2018-04-10] MEDS ORDERED: GLYCOPYRROLATE 1 MG/5 ML SYRINGE ONE (14:40)
--- NOTE | 2018-04-10 16:33 | PDOC PROGRESS REPORT ---
Subjective Progress Note for:: 04/07/18 Subjective:: 04/07/2018. Day 1 status post left great toe resection due to osteomyelitis. Otherwise no acute events overnight patient is feeling much better and denying any fever, chills, nausea, vomiting, diarrhea or any constipation. His pain is better than yesterday controlled with narcotics. His hemoglobin A1c is 12 and is stating that he is compliant with his medication. Plan is to get a right foot MRI to rule out any osteomyelitis. He may go back to the OR on Tuesday for closure of the wound. Follow-up cultures and continue IV antibiotics. Reason For Visit: OSTEOMYELITIS Physical Exam Vital Signs: Temp Pulse Resp BP Pulse Ox 98.6 F 63 16 131/60 H 96 04/07/18 07:26 04/07/18 07:26 04/07/18 07:26 04/07/18 07:26 04/07/18 07:26 Intake & Output 04/06/18 04/07/18 04/08/18 06:59 06:59 06:59 Intake Total 2480 250 Output Total 1155 Balance 1325 250 Weight 105.3 kg General appearance: PRESENT: no acute distress, obese, well-developed, well- nourished Respiratory exam: PRESENT: clear to auscultation donaldo. ABSENT: rales, rhonchi, wheezes Cardiovascular exam: PRESENT: RRR. ABSENT: diastolic murmur, rubs, systolic murmur GI/Abdominal exam: PRESENT: normal bowel sounds, soft. ABSENT: distended, guarding, mass, organolmegaly, rebound, tenderness Extremities exam: PRESENT: full ROM, other - Left great toe status post amputation. Surgical wound looks clean no active discharge. Right great toe skin ulcer clean with clean dressing no active discharge.. ABSENT: calf tenderness, clubbing, pedal edema Neurological exam: PRESENT: alert, awake, oriented to person, oriented to place , oriented to time, oriented to situation, CN II-XII grossly intact. ABSENT: motor sensory deficit Results Laboratory Results: 04/07/18 06:03 04/07/18 06:03 04/07/18 04/07/18 06:03 06:03 WBC 8.3 RBC 3.38 L Hgb 10.0 L Hct 29.3 L MCV 87 MCH 29.6 MCHC 34.2 RDW 12.9 Plt Count 359 Seg Neutrophils % 57.0 Lymphocytes % 34.8 Monocytes % 6.1 Eosinophils % 1.0 Basophils % 1.1 Absolute Neutrophils 4.7 Absolute Lymphocytes 2.9 Absolute Monocytes 0.5 Absolute Eosinophils 0.1 Absolute Basophils 0.1 Sodium 140.7 Potassium 4.0 Chloride 97 L Carbon Dioxide 30 Anion Gap 14 BUN 32 H Creatinine 1.80 H Est GFR ( Amer) 46 L Est GFR (Non-Af Amer) 38 L Glucose 97 Calcium 8.8 Magnesium 1.8 Total Bilirubin 0.5 AST 24 ALT 17 L Alkaline Phosphatase 53 Total Protein 6.4 Albumin 3.0 L Triglycerides 229 H Cholesterol 101.88 LDL Cholesterol Direct 61 VLDL Cholesterol 45.8 H HDL Cholesterol 21 L Impressions: Toe X-Ray 04/06/18 12:05 IMPRESSION: 1. Interval reduction of the previously seen dislocation of the distal phalanx of the left great toe. 2. There is new erosive loss of mineralization of the distal phalanx, concerning for osteomyelitis. 3. Extensive soft tissue swelling about the left great toe with subcutaneous emphysema, findings concerning for gas-forming infection. Assessment & Plan - Diagnosis (1) Toe osteomyelitis, left Is this a current diagnosis for this admission?: Yes Plan: Likely source could be from the untreated chronic left great toe ulcer caused by uncontrolled underlying diabetes. X-ray positive for osteomyelitis. Day 1 postop for left great toe amputation. Preliminary wound culture growing group B beta Streptococcus. Day 2 of Vanco and Zosyn. Continue wound care, follow-up blood and wound culture. Optimize blood sugar. (2) Diabetic foot ulcer associated with type 2 diabetes mellitus Qualifiers: Laterality: right Non-pressure ulcer stage: limited to breakdown of skin Is this a current diagnosis for this admission?: Yes Plan: Likely due to uncontrolled diabetes. 04/06/2018. Right great toe x-ray could not exclude osteomyelitis. 10/2017 MRI left foot marrow edema in the distal phalanx right great toe worrisome for osteomyelitis. Day 2 of Vanco and Zosyn. Surgery on board. Follow-up wound and blood cultures. Prelim wound culture from left great toe grows group B streptococcus. Pending sensitivity. (3) Hyperlipidemia Is this a current diagnosis for this admission?: Yes Plan: ASCVD: 41%. High intensity statins. Diet and lifestyle modification. (4) Hypertension Is this a current diagnosis for this admission?: Yes Plan: Normotensive. Retart home meds. Monitor vitals adjust meds as needed. (5) Diabetes Is this a current diagnosis for this admission?: Yes Plan: Uncontrolled. Long-acting insulin, pre-meal insulin, sliding scale insulin, Accu-Chek, diabetic diet, diabetic education. Will adjust dosage as needed.
[2018-04-10] MEDS: MORPHINE SULFATE 10 MG/ML INJ IV PRN (20:37)
[2018-04-10] MEDS: INSULIN GLARGINE,HUM.REC.ANLOG 300 UNIT/3 ML INSULN.PEN SUBCUT SCH (21:32)
[2018-04-10] MEDS: INSULIN LISPRO 100 UNIT/ML 3 ML VIAL SUBCUT PRN (21:33)
[2018-04-11] MEDS: MORPHINE SULFATE 10 MG/ML INJ IV PRN ×5 (00:48→23:20)
[2018-04-11] MEDS: PIPERACILLIN SODIUM/TAZOBACTAM 4.5 GM in NORMAL SALINE 100 ML IV SCH ×4 (03:27→22:23)
[2018-04-11] MEDS: VANCOMYCIN HCL 1,000 MG in DEXTROSE 5%-WATER 250 ML IV SCH ×2 (05:28→17:07)
[2018-04-11] MEDS: HEPARIN SOD (PORCINE) 5,000 UNIT/ML 1 ML SYRINGE SUBCUT SCH ×3 (05:28→22:23)
[2018-04-11] MEDS: LANSOPRAZOLE 30 MG TAB.RAP.DR PO SCH ×2 (05:28→17:07)
[2018-04-11 05:35] LABS: ABSOLUTE BASOPHILS # (AUTO) 0.1 10^3/uL (0.0-0.2); ABSOLUTE LYMPHOCYTES (AUTO) 2.1 10^3/uL (0.5-4.7); ABSOLUTE MONOCYTES (AUTO) 0.7 10^3/uL (0.1-1.4); ABSOLUTE NEUT (AUTO) 7.7 10^3/uL (1.7-8.2); BASOPHILS % (AUTO) 0.7 % (0-2); EOSINOPHILS % (AUTO) 0.1 % (0-6); HEMATOCRIT 28.3 % (37.9-51.0); HEMOGLOBIN 9.8 g/dL (13.5-17.0); LYMPHOCYTES % (AUTO) 19.9 % (13-45); MEAN CORPUSCULAR HEMOGLOBIN 30.6 pg (27.0-33.4); MEAN CORPUSCULAR HGB CONC 34.5 g/dL (32.0-36.0); MEAN CORPUSCULAR VOLUME 89 fl (80-97); MONOCYTES % (AUTO) 6.2 % (3-13); PLATELET COUNT 383 10^3/uL (150-450); RED BLOOD COUNT 3.19 10^6/uL (4.35-5.55); RED CELL DISTRIBUTION WIDTH 12.8 % (11.5-14.0); SEGMENTED NEUTROPHILS % (AUTO) 73.1 % (42-78); TOTAL CELLS COUNTED % (AUTO) 100 %; WHITE BLOOD COUNT 10.5 10^3/uL (4.0-10.5)
[2018-04-11 06:00] LABS: ALANINE AMINOTRANSFERASE 21 U/L (21-72); ALKALINE PHOSPHATASE 57 U/L (38-126); ANION GAP 13 (5-19); ASPARTATE AMINO TRANSFERASE 27 U/L (17-59); BILIRUBIN,DIRECT 0.3 mg/dL (0.0-0.4); BILIRUBIN,TOTAL 0.3 mg/dL (0.2-1.3); BLOOD UREA NITROGEN 16 mg/dL (7-20); CALCIUM 9.1 mg/dL (8.4-10.2); CARBON DIOXIDE 22 mmol/L (22-30); CHLORIDE 103 mmol/L (98-107); GLUCOSE 172 mg/dL (75-110); POTASSIUM 4.8 mmol/L (3.6-5.0); SODIUM 138.4 mmol/L (137-145); TOTAL PROTEIN 6.4 g/dL (6.3-8.2)
[2018-04-11] MEDS: INSULIN LISPRO 100 UNIT/ML 3 ML VIAL SUBCUT PRN ×3 (08:19→22:27)
[2018-04-11] MEDS: INSULIN LISPRO 100 UNIT/ML 3 ML VIAL SUBCUT SCH ×3 (08:19→16:41)
[2018-04-11] MEDS: DOCUSATE SODIUM 100 MG CAPSULE PO SCH ×2 (09:53→17:07)
[2018-04-11] MEDS: LISINOPRIL 5 MG TABLET PO SCH (09:54)
[2018-04-11] MEDS: COLLAGENASE CLOSTRIDIUM HIST. OINT 30 GM TOP SCH (09:54)
[2018-04-11] MEDS: FENOFIBRATE NANOCRYSTALLIZED 145 MG TABLET PO SCH (09:54)
[2018-04-11] MEDS: OXYCODONE-ACETAMINOPHEN 5-325 MG TABLET PO PRN ×3 (09:54→22:24)
[2018-04-11] MEDS: METOPROLOL SUCCINATE 50 MG TAB.SR.24H PO SCH (09:54)
--- NOTE | 2018-04-11 10:30 | PDOC PROGRESS REPORT ---
Subjective Progress Note for:: 04/11/18 Subjective:: feels good post amp right great toe and revision of amputation left great toe Reason For Visit: OSTEOMYELITIS Physical Exam Vital Signs: Temp Pulse Resp BP Pulse Ox 98.4 F 59 L 16 140/60 H 96 04/11/18 07:14 04/11/18 07:14 04/11/18 07:14 04/11/18 07:14 04/11/18 07:14 Intake & Output 04/10/18 04/11/18 04/12/18 06:59 06:59 06:59 Intake Total 2904 6166 350 Output Total 300 2660 Balance 2604 3506 350 Weight 108.4 kg 111.6 kg Exam: Right great toe dressing dry Left great toe amp dressing removed and will need wound vac. Ordered Results Laboratory Results: 04/11/18 04:28 04/11/18 04:28 04/11/18 04/11/18 04:28 04:28 WBC 10.5 RBC 3.19 L Hgb 9.8 L Hct 28.3 L MCV 89 MCH 30.6 MCHC 34.5 RDW 12.8 Plt Count 383 Seg Neutrophils % 73.1 Lymphocytes % 19.9 Monocytes % 6.2 Eosinophils % 0.1 Basophils % 0.7 Absolute Neutrophils 7.7 Absolute Lymphocytes 2.1 Absolute Monocytes 0.7 Absolute Eosinophils 0.0 Absolute Basophils 0.1 Sodium 138.4 Potassium 4.8 Chloride 103 Carbon Dioxide 22 Anion Gap 13 BUN 16 Creatinine 1.22 Est GFR ( Amer) > 60 Est GFR (Non-Af Amer) 59 L Glucose 172 H Calcium 9.1 Total Bilirubin 0.3 AST 27 ALT 21 Alkaline Phosphatase 57 Total Protein 6.4 Albumin 3.0 L 04/06/18 17:22 Foot - Abscess Gram Stain - Final 04/06/18 17:22 Foot - Abscess Wound Culture - Final Staphylococcus Aureus Enterococcus Faecalis(Group D) Group B Beta Streptococcus No Anaerobic Organisms Impressions: Toe X-Ray 04/06/18 12:05 IMPRESSION: 1. Interval reduction of the previously seen dislocation of the distal phalanx of the left great toe. 2. There is new erosive loss of mineralization of the distal phalanx, concerning for osteomyelitis. 3. Extensive soft tissue swelling about the left great toe with subcutaneous emphysema, findings concerning for gas-forming infection. Lower Extremity MRI 04/07/18 00:00 IMPRESSION: Marrow edema in the distal phalanx right great toe worrisome for osteomyelitis Medial right great toe cellulitis Although there is no interphalangeal joint effusion at the great toe, there is some abnormal marrow signal in the proximal phalanx at the interphalangeal joint. Early involvement with osteomyelitis may be present. 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
[2018-04-11] MEDS: NORMAL SALINE 1000 ML 1,000 ML IV PRN (12:02)
[2018-04-11] MEDS: GABAPENTIN 100 MG CAPSULE PO SCH ×2 (13:36→22:24)
--- NOTE | 2018-04-11 15:55 | Progress Note ---
Provider Note Provider Note: ID Consult Note Asked to review patient's chart by Pharmacy. Pt not seen or examined. Reviewed VS, imaging reports, provider reports, operative note, relevant labs. Mr. Soto is a 67 year old man with PMH including obesity, poorly controlled DM and several month history of L toe ulcer who presented to the ED on 04/06/18 with c/o malaise x several days and worsening redness to L 1st toe. Pt was afebrile but noted to have diabetic ulcers involving L 1st toe with crepitus, malodorous purulent drainage and surrounding erythema and also an ulcer to R toe that with mild inflammation on exam. Plain films showed erosive loss of mineralization involving the distal phalanx of the L 1st toe and soft tissue swelling with subcutaneous emphysema. Pt underwent amputation of the L 1st toe on 04/06/18. MRI of the R foot on 04/07/18 was read as showing marrow edema in the R 1st toe worrisome for osteomyelitis involving the distal phalanx and question of early osteomyelitis about the interphalangeal joint. The pathology examination of the submitted specimen included acute osteomyelitis with osteonecrosis of the toe but from the area of resection no acute osteomyelitis was present. The decision was made to amputate the R 1st toe at the same time of delayed primary closure for the L 1st toe amputation. On 04/10/18 the patient returned to the OR, at which time the R 1st toe was amputated and the the distal metatarsal head was resected; the left foot metatarsal was taken back several centimeters. With contamination of the wound and nonviable tissue but no antwan pus appreciated interoperatively, the decision was made to use wound VAC before closing. In terms of cultures, pt has had negative BCx. A wound culture from 04/06 grew MSSA, Group B Strep and Enterococcus faecalis. Pt has been empirically receiving vancomycin and Zosyn. 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 Recommendations - No MRSA isolated; stop vancomycin - Duration of Zosyn should be short, considering all osteomyelitic bone appears to have been removed. How long to continue Zosyn should be guided by any whether or not there is residual soft tissue signs of infection or inflammation. Pt has received Zosyn from 04/06 to present (today is day 6). - If the soft tissue looks clean and uninfected, stop Zosyn presently. If there is some remaining erythema, Zosyn can be continued for another few days before stopping. Riky Goncalves MD [facility] Infectious Diseases pager [phone]
--- NOTE | 2018-04-11 19:38 | PDOC PROGRESS REPORT ---
Subjective Progress Note for:: 04/11/18 Subjective:: The patient is a 67-year-old male with a past medical history of uncontrolled diabetes, hypertension, hyperlipidemia, obesity who was admitted 04/06/2018 with osteomyelitis of the left great toe and a chronic diabetic foot ulcer to the right. Patient was seen on morning rounds. He was found resting in bed comfortably on room air. He is now status post amputations of bilateral great toes. He tells me that his pain is fairly well controlled, however, is experiencing a burning sensation to the plantar surface of both feet that occasionally extends midway up his legs. He denies any neuropathy to his fingers or hands. He has been ambulatory with a front wheel walker and is looking forward to she is discharged home within the next few days. We discussed setting up home health services to assist with wound care, and to continue education regarding his diabetes management; he seems relieved to know that there will be continued nursing assistance following discharge. He has no other questions or concerns at this time. No concerns per nursing. Reason For Visit: OSTEOMYELITIS Physical Exam Vital Signs: Temp Pulse Resp BP Pulse Ox 98.9 F 62 16 124/59 L 97 04/11/18 15:26 04/11/18 15:26 04/11/18 15:26 04/11/18 15:26 04/11/18 15:26 Intake & Output 04/10/18 04/11/18 04/12/18 06:59 06:59 06:59 Intake Total 2904 6166 2118 Output Total 300 2660 900 Balance 2604 3506 1218 Weight 108.4 kg 111.6 kg General appearance: PRESENT: no acute distress, cooperative, obese, well- developed, well-nourished Head exam: PRESENT: atraumatic, normocephalic Eye exam: PRESENT: conjunctiva pink, EOMI, PERRLA. ABSENT: scleral icterus Ear exam: PRESENT: normal external ear exam Mouth exam: PRESENT: moist, tongue midline Neck exam: ABSENT: carotid bruit, JVD, lymphadenopathy, thyromegaly Respiratory exam: PRESENT: clear to auscultation donaldo, symmetrical, unlabored. ABSENT: rales, rhonchi, wheezes Cardiovascular exam: PRESENT: RRR. ABSENT: diastolic murmur, rubs, systolic murmur Pulses: PRESENT: normal dorsalis pedis pul Vascular exam: PRESENT: normal capillary refill GI/Abdominal exam: PRESENT: normal bowel sounds, soft. ABSENT: distended, guarding, mass, organolmegaly, rebound, tenderness Rectal exam: PRESENT: deferred Extremities exam: PRESENT: full ROM, other - bilateral great toe amputations; wounds not visualized, surgical dressings in place.. ABSENT: calf tenderness, clubbing, pedal edema Neurological exam: PRESENT: alert, awake, oriented to person, oriented to place , oriented to time, oriented to situation, CN II-XII grossly intact. ABSENT: motor sensory deficit Psychiatric exam: PRESENT: appropriate affect, normal mood. ABSENT: homicidal ideation, suicidal ideation Skin exam: PRESENT: dry, warm. ABSENT: cyanosis, rash Results Laboratory Results: 04/11/18 04:28 04/11/18 04:28 04/11/18 04/11/18 04:28 04:28 WBC 10.5 RBC 3.19 L Hgb 9.8 L Hct 28.3 L MCV 89 MCH 30.6 MCHC 34.5 RDW 12.8 Plt Count 383 Seg Neutrophils % 73.1 Lymphocytes % 19.9 Monocytes % 6.2 Eosinophils % 0.1 Basophils % 0.7 Absolute Neutrophils 7.7 Absolute Lymphocytes 2.1 Absolute Monocytes 0.7 Absolute Eosinophils 0.0 Absolute Basophils 0.1 Sodium 138.4 Potassium 4.8 Chloride 103 Carbon Dioxide 22 Anion Gap 13 BUN 16 Creatinine 1.22 Est GFR ( Amer) > 60 Est GFR (Non-Af Amer) 59 L Glucose 172 H Calcium 9.1 Total Bilirubin 0.3 AST 27 ALT 21 Alkaline Phosphatase 57 Total Protein 6.4 Albumin 3.0 L 04/06/18 16:24 Blood Blood Culture - Final NO GROWTH IN 5 DAYS 04/06/18 17:22 Foot - Abscess Gram Stain - Final 04/06/18 17:22 Foot - Abscess Wound Culture - Final Staphylococcus Aureus Enterococcus Faecalis(Group D) Group B Beta Streptococcus No Anaerobic Organisms Impressions: Toe X-Ray 04/06/18 12:05 IMPRESSION: 1. Interval reduction of the previously seen dislocation of the distal phalanx of the left great toe. 2. There is new erosive loss of mineralization of the distal phalanx, concerning for osteomyelitis. 3. Extensive soft tissue swelling about the left great toe with subcutaneous emphysema, findings concerning for gas-forming infection. Lower Extremity MRI 04/07/18 00:00 IMPRESSION: Marrow edema in the distal phalanx right great toe worrisome for osteomyelitis Medial right great toe cellulitis Although there is no interphalangeal joint effusion at the great toe, there is some abnormal marrow signal in the proximal phalanx at the interphalangeal joint. Early involvement with osteomyelitis may be present. 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 Blood cultures negative at 5 days. Surgery is primary; have arranged for wound VAC to the left toe. Dr. Rendno anticipates the patient will be ready for or discharged home within the next 2 days. Infectious Disease was consulted; recommends discontinuing vancomycin as the patient is negative for MRSA. She further recommends discontinuing Zosyn within the next 1-2 days depending upon evaluation of surrounding skin for evidence of cellulitis. I did not visualize these wounds personally today as they had new surgical dressings in place from his procedures yesterday that had not yet been removed by the surgeon. Discharge planning is consulted; will require home health nursing for wound care. (2) Toe osteomyelitis, right Is this a current diagnosis for this admission?: Yes Plan: Now status post right great toe amputation secondary to chronic diabetic wound. Surgery is primary; wound care per their recommendations. Cultures and antibiotics as above. (3) PAWEL (acute kidney injury) Is this a current diagnosis for this admission?: Yes Plan: Resolved. Acute on chronic CKD with baseline creatinine of 1.26. Today he is noted to have a creatinine of 1.22 with a BUN of 16. Avoid nephrotoxic medications as able. Encouraged p.o. fluids. (4) Hyperlipidemia Is this a current diagnosis for this admission?: Yes Plan: ASCVD: 41%. High intensity statins. Diet and lifestyle modification. (5) Diabetes Is this a current diagnosis for this admission?: Yes Plan: A1c 12.1%. Patient is placed on a consistent carb diet with Accu-Cheks before meals and at bedtime with Humalog for sliding scale coverage. Humalog 14 units subcu before meals. Lantus 32 units subcu nightly. Will start gabapentin 100 mg three times daily for neuropathy. Registered dietitian and extension educator consulted. (6) Hypertension Is this a current diagnosis for this admission?: Yes Plan: Blood pressures are much improved; continue Toprol XL 100 mg daily, lisinopril 5 mg daily. Cardiac diet. Registered dietitian has been consulted; appreciate their assistance with patient education. - Time Time Spent with patient: 15-24 minutes Medications reviewed and adjusted accordingly: Yes Anticipated discharge: Home with Homehealth
[2018-04-11] MEDS: INSULIN GLARGINE,HUM.REC.ANLOG 300 UNIT/3 ML INSULN.PEN SUBCUT SCH (22:24)
[2018-04-12] MEDS: PIPERACILLIN SODIUM/TAZOBACTAM 4.5 GM in NORMAL SALINE 100 ML IV SCH ×4 (03:17→21:23)
[2018-04-12] MEDS: OXYCODONE-ACETAMINOPHEN 5-325 MG TABLET PO PRN ×3 (04:16→17:56)
[2018-04-12] MEDS: LANSOPRAZOLE 30 MG TAB.RAP.DR PO SCH ×2 (05:15→16:42)
[2018-04-12] MEDS: GABAPENTIN 100 MG CAPSULE PO SCH ×3 (05:15→21:23)
[2018-04-12] MEDS: HEPARIN SOD (PORCINE) 5,000 UNIT/ML 1 ML SYRINGE SUBCUT SCH ×3 (05:15→21:18)
[2018-04-12] MEDS: NORMAL SALINE 1000 ML 1,000 ML IV PRN (05:16)
[2018-04-12] MEDS: MORPHINE SULFATE 10 MG/ML INJ IV PRN ×3 (06:40→21:17)
[2018-04-12] MEDS: INSULIN LISPRO 100 UNIT/ML 3 ML VIAL SUBCUT SCH ×3 (08:22→16:43)
[2018-04-12] MEDS: METOPROLOL SUCCINATE 50 MG TAB.SR.24H PO SCH (10:49)
[2018-04-12] MEDS: DOCUSATE SODIUM 100 MG CAPSULE PO SCH ×2 (10:50→17:54)
[2018-04-12] MEDS: LISINOPRIL 5 MG TABLET PO SCH (10:50)
[2018-04-12] MEDS: COLLAGENASE CLOSTRIDIUM HIST. OINT 30 GM TOP SCH (10:50)
[2018-04-12] MEDS: FENOFIBRATE NANOCRYSTALLIZED 145 MG TABLET PO SCH (10:50)
[2018-04-12] MEDS: INSULIN LISPRO 100 UNIT/ML 3 ML VIAL SUBCUT PRN (11:45)
--- NOTE | 2018-04-12 12:41 | PDOC PROGRESS REPORT ---
Subjective Reason For Visit: OSTEOMYELITIS Physical Exam Vital Signs: Temp Pulse Resp BP Pulse Ox 98.0 F 67 20 141/62 H 99 04/12/18 12:00 04/12/18 12:00 04/12/18 12:00 04/12/18 12:00 04/12/18 12:00 Intake & Output 04/11/18 04/12/18 04/13/18 06:59 06:59 06:59 Intake Total 6166 3743 1203 Output Total 2660 2750 800 Balance 3506 993 403 Weight 111.6 kg 104.5 kg Results Laboratory Results: 04/11/18 04:28 04/11/18 04:28 04/06/18 16:24 Blood Blood Culture - Final NO GROWTH IN 5 DAYS Impressions: Toe X-Ray 04/06/18 12:05 IMPRESSION: 1. Interval reduction of the previously seen dislocation of the distal phalanx of the left great toe. 2. There is new erosive loss of mineralization of the distal phalanx, concerning for osteomyelitis. 3. Extensive soft tissue swelling about the left great toe with subcutaneous emphysema, findings concerning for gas-forming infection. Lower Extremity MRI 04/07/18 00:00 IMPRESSION: Marrow edema in the distal phalanx right great toe worrisome for osteomyelitis Medial right great toe cellulitis Although there is no interphalangeal joint effusion at the great toe, there is some abnormal marrow signal in the proximal phalanx at the interphalangeal joint. Early involvement with osteomyelitis may be present. 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 Wound VAC is in place. Patient is healing well. Awaiting home wound VAC approval. Discharge once home VAC approved and delivered. Continue with local wound care.
--- NOTE | 2018-04-12 13:45 | PROGRESS NOTE E ---
Progress Note NAME: HILARIO BRUCE : 1950 AGE: 67Y DATE: 04/12/2018 ROOM: 401 SUBJECTIVE: The patient is currently sitting on the side of the bed. He has been seen by Surgery. Dressings have been changed. The patient denies any nausea, vomiting, diarrhea. No shortness of breath, dizziness, chest pain. No fevers or chills. The patient has been afebrile, blood pressure has been in a good range, and the patient does not voice any other concerns at this time. REVIEW OF SYSTEMS: The rest of the review of systems is negative. MEDICATIONS: Medications have been reviewed. OBJECTIVE: GENERAL: The patient is a 67-year-old male who is awake, alert. He is oriented to person, place, time, and situation. He is verbal, conversational, does not appear to be in acute distress. VITAL SIGNS: As follows: Temperature is 98.2, pulse 72, respirations 18, blood pressure 134/45, oxygen saturation is 94% on room air. SKIN: Warm and dry. No rash, not diaphoretic. HEENT: Pupils equal, round, and reactive to light and accommodation. Conjunctivae pink. There is no evidence of JVP. CARDIOVASCULAR: Heart is regular. There is no murmur or rub. CHEST: Clear, symmetrical, unlabored. ABDOMEN: Soft, nontender, nondistended. BACK: No CVA tenderness or sacral edema. EXTREMITIES: No clubbing, cyanosis, edema. The patient's bilateral lower extremities are wrapped in appropriate dressing. DIAGNOSTICS: Lab values are as follows. Hematology obtained on 04/11/2018: WBCs are 2.5, hemoglobin is 9.8, hematocrit is 28.3, platelet count is 382,000. Chemistry obtained on 04/11/2018: Sodium is 138, potassium 4.8, chloride 103, carbon dioxide 22, BUN 16, creatinine 1.22, glucose 172, calcium 9.1, bilirubin 0.3, AST 27, ALT 21, alk phos 57, total protein 6.4, albumin 3.0. IMPRESSION AND PLAN: 1. RIGHT AND LEFT GREAT TOE OSTEOMYELITIS. The patient is postoperative day #2 of amputation. Do appreciate Surgery's input on this and management. 2. ACUTE KIDNEY INJURY, RESOLVED. 3. HYPERLIPIDEMIA. Continue statins. 4. DIABETES MELLITUS TYPE 2. The patient's A1c was 12. He has been placed on appropriate coverage, overall appears to have decent glycemic control with appropriate coverage. 5. HYPERTENSION. Blood pressures have been in acceptable range. DISPOSITION: THE PATIENT IS A FULL CODE. Pending the patient's symptomatology and diagnostic findings, will re-evaluate in the a.m. Time spent on this followup, including assessment/plan, physical examination, patient education, review of records, is 25 minutes. DICTATING PHYSICIAN: ADRIANNA ROPER NP [id number] PHY#: [id number] ID: [id number] JOB#: [id number] ACCT: [id number] cc: >
[2018-04-12] MEDS: INSULIN GLARGINE,HUM.REC.ANLOG 300 UNIT/3 ML INSULN.PEN SUBCUT SCH (21:20)
[2018-04-13] MEDS: PIPERACILLIN SODIUM/TAZOBACTAM 4.5 GM in NORMAL SALINE 100 ML IV SCH ×2 (03:45→09:14)
[2018-04-13] MEDS: OXYCODONE-ACETAMINOPHEN 5-325 MG TABLET PO PRN ×2 (05:22→11:40)
[2018-04-13] MEDS: GABAPENTIN 100 MG CAPSULE PO SCH (05:22)
[2018-04-13] MEDS: LANSOPRAZOLE 30 MG TAB.RAP.DR PO SCH (05:22)
[2018-04-13] MEDS: HEPARIN SOD (PORCINE) 5,000 UNIT/ML 1 ML SYRINGE SUBCUT SCH (05:23)
[2018-04-13] MEDS: INSULIN LISPRO 100 UNIT/ML 3 ML VIAL SUBCUT SCH ×2 (07:47→11:40)
[2018-04-13] MEDS: MORPHINE SULFATE 10 MG/ML INJ IV PRN (09:13)
[2018-04-13] MEDS: LISINOPRIL 5 MG TABLET PO SCH (09:14)
[2018-04-13] MEDS: DOCUSATE SODIUM 100 MG CAPSULE PO SCH (09:14)
[2018-04-13] MEDS: METOPROLOL SUCCINATE 50 MG TAB.SR.24H PO SCH (09:14)
[2018-04-13] MEDS: FENOFIBRATE NANOCRYSTALLIZED 145 MG TABLET PO SCH (09:15)
[2018-04-13] MEDS: COLLAGENASE CLOSTRIDIUM HIST. OINT 30 GM TOP SCH (09:21)
[2018-04-13 12:33] VITALS: BP 127/87
--- NOTE | 2018-04-14 11:42 | DISCHARGE SUMMARY E ---
Discharge Summary NAME: HILARIO BRUCE : 1950 AGE: 67Y ADMITTED: 04/06/2018 DISCHARGED: 04/13/2018 CODE STATUS: FULL CODE. PRIMARY CARE PROVIDER: Gerson Anderson M.D. OPERATING SURGEON: Stoney Rendon M.D. DISCHARGE DIAGNOSES INCLUDE: 1. Right and left great toe osteomyelitis, status post amputation, postoperative day #3. 2. Acute kidney injury, resolved. 3. Hyperlipidemia. 4. Diabetes mellitus type 2, uncontrolled. 5. Hypertension. DISCHARGE MEDICATIONS INCLUDE: 1. Oxycodone 5 mg/325 mg 1 tablet p.o. every 6 hours p.r.n., 20 tablets with 0 refills. 2. Lisinopril 5 mg p.o. daily, 30 tablets with 0 refills. 3. Humalog 14 units subcutaneously with each meal. 4. Lantus 32 units subcutaneously daily. 5. Neurontin 100 mg p.o. every 8 hours. 6. Toprol XL 100 mg p.o. daily. 7. Antivert 12.5 mg p.o. b.i.d. p.r.n. 8. TriCor 145 mg p.o. daily. 9. Multiple prescriptions for various diabetic testing supplies. DIET: Diabetic. ACTIVITY: Keep legs elevated but with Home Health and Physical Therapy. CONDITION: Fair. DIAGNOSTICS: Lab values are as follows. Hematology obtained on 04/11/2018: WBCs are 2.8, hemoglobin 9.8, hematocrit is 28.3, platelet count is 383,000. Chemistry obtained on 04/11/2018: Sodium is 138, potassium 4.8, chloride 103, carbon dioxide 22, BUN 16, creatinine 1.22, glucose 172, calcium is 9.1, magnesium is 1.7, bilirubin 0.3, AST 27, ALT is 21, alk phos 57, total protein 6.4, albumin is 3.0. MRI of the lower extremity obtained on 04/07/2018 reveals findings consistent with osteomyelitis of the medial right great toe. PHYSICAL EXAMINATION: GENERAL: The patient is a well-developed, well-nourished 67-year-old male who is awake, alert, and oriented to person, place, time, and situation. He is verbal, conversational, does not appear to be in acute distress. VITAL SIGNS: As follows: Temperature is 98.3, pulse 67, respirations 20, blood pressure 127/87, oxygen saturation 98% on room air. SKIN: Warm and dry. No rash, not diaphoretic. HEENT: Pupils equal, round, and reactive to light and accommodation. Conjunctivae is pink. No evidence of JVP. CARDIOVASCULAR: Heart is regular. There is no murmur or rub. CHEST: Clear, symmetrical, unlabored. ABDOMEN: Soft, nontender, nondistended. BACK: No CVA tenderness or sacral edema. EXTREMITIES: No clubbing, cyanosis, or edema. PSYCHIATRIC: Appropriate affect. Pleasant mood. HISTORY OF PRESENT ILLNESS: The patient is a 67-year-old male with a past medical history of poorly controlled diabetes. The patient presented to the emergency department with a chief complaint of foot pain. The patient presented with plantar aspect ulcers of his bilateral great toes with weeping discharge associated with pain with ambulation. The patient has had a left great toe plantar ulcer for about 4 months which has been managed outpatient by his wire brusher. About a week prior to presentation the patient noticed that his toe ulcer was worsening and started to become very red and more painful. The patient went back to his wire brusher and was discharged with wound care. The patient noticed that his ulcer was not getting better and, therefore, he came to the emergency department for evaluation. The patient had no fever, but while in the emergency department he was found to have a severely elevated C-reactive protein and x-rays were consistent with a possible osteomyelitis. The patient was seen by the surgery service in the emergency department and asked the hospitalist to admit to help manage the patient's diabetes. The patient was admitted to the medical unit. The patient was started on basal dose of Lantus as well as prandial coverage. The patient's A1c was severely elevated at 12. The patient was seen and evaluated by the surgery service and underwent operative amputation on 04/07/2018 as well as 04/11/2018. The patient's blood cultures remained negative. The patient has made progress. The patient does have a wound VAC applied to one of his wounds that is being managed by Surgery. The patient is not recommended to continue with any sort of antibiotic postoperatively, and the patient is quite eager for discharge. DISCHARGE PLANNIN. The patient will follow up with his primary care provider within 2 to 4 weeks prior to the followup. 2. The patient is advised to follow up with Surgery within 7 to 10 days for hospital followup. 3. The patient will receive the services of Home Health and Physical Therapy as well as Wound Management. Time spent on this discharge, including assessment/plan, physical examination, patient education, review of records, and family meeting, is 35 minutes. DICTATING PHYSICIAN: ADRIANNA ROPER NP [id number] PHY#: [id number] ID: [id number] JOB#: [id number] ACCT: [id number] cc:MD ADRIANNA Adkins NP >
== END 2018-04-13 14:25 | disposition home health service (06) | DRG 617 ==
LOC: ER 11:34 → EH 14:31 → 4N 19:30
PROVIDERS: ADMIT Hospitalist; ATTEND Hospitalist
PROC: 0QBP0ZZ Excision of Left Metatarsal, Open Approach (ICD-10-PCS; 2018-04-10)
PROC: 0JBR0ZZ Excision of Left Foot Subcutaneous Tissue and Fascia, Open Approach (ICD-10-PCS; 2018-04-10)
PROC: 0Y6P0Z1 Detachment at Right 1st Toe, High, Open Approach (ICD-10-PCS; principal; 2018-04-10 12:30)
DX: E11.621 Type 2 diabetes mellitus with foot ulcer (principal); M86.9 Osteomyelitis, unspecified; L03.031 Cellulitis of right toe; N17.9 Acute kidney failure, unspecified; E11.69 Type 2 diabetes mellitus with other specified complication; E11.65 Type 2 diabetes mellitus with hyperglycemia; L97.529 Non-pressure chronic ulcer of other part of left foot with unspecified severity; I10 Essential (primary) hypertension; E78.00 Pure hypercholesterolemia, unspecified; B95.1 Streptococcus, group B, as the cause of diseases classified elsewhere
CPT/HCPCS: 01480; 36415; 80053; 80061; 80202; 82962; 83036; 83605; 83735; 85025; 86140; 87040; 87070; 87075; 87077; 87186; 87205; 88304; 88305; 88311; 93005; 93010; 93925; 99285; G8978-GP; G8979-GP; G8987-GO; G8988-GO; G8989-GO; J0330; J1100; J1644; J1815; J2250; J2270; J2370; J2405; J2543; J2704; J3010; J3370; J3490; J7030; J7060

== ENCOUNTER → 2018-05-09 | Outpatient (CLI) | payer MEDICARE, OTHER ==
[2018-05-09 11:18] LABS: ABSOLUTE BASOPHILS # (AUTO) 0.1 10^3/uL (0.0-0.2); ABSOLUTE EOSINOPHILS # (AUTO) 0.1 10^3/uL (0.0-0.6); ABSOLUTE MONOCYTES (AUTO) 0.5 10^3/uL (0.1-1.4); ABSOLUTE NEUT (AUTO) 3.4 10^3/uL (1.7-8.2); BASOPHILS % (AUTO) 1.1 % (0-2); EOSINOPHILS % (AUTO) 1.3 % (0-6); HEMATOCRIT 35.7 % (37.9-51.0); HEMOGLOBIN 12.4 g/dL (13.5-17.0); LYMPHOCYTES % (AUTO) 32.8 % (13-45); MEAN CORPUSCULAR HEMOGLOBIN 30.6 pg (27.0-33.4); MEAN CORPUSCULAR HGB CONC 34.7 g/dL (32.0-36.0); MEAN CORPUSCULAR VOLUME 88 fl (80-97); MONOCYTES % (AUTO) 8.4 % (3-13); PLATELET COUNT 233 10^3/uL (150-450); RED BLOOD COUNT 4.05 10^6/uL (4.35-5.55); RED CELL DISTRIBUTION WIDTH 14.6 % (11.5-14.0); SEGMENTED NEUTROPHILS % (AUTO) 56.4 % (42-78); TOTAL CELLS COUNTED % (AUTO) 100 %
[2018-05-09 11:46] LABS: ALANINE AMINOTRANSFERASE 13 U/L (21-72); ALBUMIN 4.1 g/dL (3.5-5.0); ALKALINE PHOSPHATASE 44 U/L (38-126); ANION GAP 11 (5-19); ASPARTATE AMINO TRANSFERASE 23 U/L (17-59); BILIRUBIN,DIRECT 0.3 mg/dL (0.0-0.4); BILIRUBIN,TOTAL 0.6 mg/dL (0.2-1.3); BLOOD UREA NITROGEN 16 mg/dL (7-20); CALCIUM 9.9 mg/dL (8.4-10.2); CARBON DIOXIDE 26 mmol/L (22-30); CHLORIDE 103 mmol/L (98-107); GLUCOSE 101 mg/dL (75-110); POTASSIUM 4.7 mmol/L (3.6-5.0); SODIUM 140.1 mmol/L (137-145); TOTAL PROTEIN 7.3 g/dL (6.3-8.2)
[2018-05-09 11:47] LABS: C-REACTIVE PROTEIN < 5.0 mg/L (<10.0)
[2018-05-09 12:05] LABS: ERYTHROCYTE SEDIMENTATION RATE 34 mm/hr (0-20)
--- NOTE | 2018-05-09 12:07 | RADIOLOGY REPORT (SQ) ---
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 NUMBER OF VIEWS: Three views. TECHNIQUE: AP, lateral and oblique radiographic images acquired of the right foot. LIMITATIONS: None. FINDINGS: MINERALIZATION: Normal. BONES: Interval removal of the 1st digit. Resection of the head of the 1st metatarsal. No acute fra cture or dislocation. No worrisome bone lesions. JOINTS: No effusions. SOFT TISSUES: No soft tissue swelling. No foreign body. OTHER: No other significant finding. IMPRESSION: POSTOPERATIVE CHANGE WITH REMOVAL OF THE 1ST DIGIT AND RESECTION OF THE HEAD OF THE 1ST METATARSAL. NO OTHER SIGNIFICANT RADIOGRAPHIC FINDING. TECHNICAL DOCUMENTATION: JOB ID: [id number] [employer]- All Rights Reserved Reading location - IP/workstation name: [email or web address]
== END ==
LOC: OD 10:29
PROVIDERS: ATTEND Preventive Medicine Undersea and Hyperbaric Medicine
DX: E11.621 Type 2 diabetes mellitus with foot ulcer (principal); L97.512 Non-pressure chronic ulcer of other part of right foot with fat layer exposed
CPT/HCPCS: 36415; 80053; 83036; 85025; 85652; 86140

== ENCOUNTER → 2018-05-16 | Outpatient (CLI) | payer MEDICARE, OTHER ==
--- NOTE | 2018-05-16 10:15 | RADIOLOGY REPORT (SQ) ---
EXAM DESCRIPTION: CHEST PA/LATERAL COMPLETED DATE/TIME: 05/16/2018 10:05 am REASON FOR STUDY: PNEUMOTHORAX, UNSPECIFIED COMPARISON: None. EXAM PARAMETERS: NUMBER OF VIEWS: two views TECHNIQUE: Digital Frontal and Lateral radiographic views of the chest acquired. RADIATION DOSE: NA LIMITATIONS: none FINDINGS: LUNGS AND PLEURA: No opacities, masses or pneumothorax. No pleural effusion. MEDIASTINUM AND HILAR STRUCTURES: No masses or contour abnormalities. HEART AND VASCULAR STRUCTURES: Heart normal size. No evidence for failure. BONES: No acute findings. HARDWARE: None in the chest. OTHER: No other significant finding. IMPRESSION: NO SIGNIFICANT RADIOGRAPHIC FINDING IN THE CHEST. TECHNICAL DOCUMENTATION: JOB ID: [id number] [employer]- All Rights Reserved Reading location - IP/workstation name: [email or web address]
--- NOTE | 2018-05-16 10:19 | RADIOLOGY REPORT (SQ) ---
EXAM DESCRIPTION: FOOT LEFT COMPLETE COMPLETED DATE/TIME: 05/16/2018 10:05 am REASON FOR STUDY: NON-PRS CHRONIC ULCER OTH PRT LEFT FOOT W NECROSIS OF BONE J93.9 PNEUMOTHORAX, UN SPECIFIED L97.524 NON-PRS CHRONIC ULCER OTH PRT LEFT FOOT W NECROSIS O COMPARISON: 04/06/2018 NUMBER OF VIEWS: Three views. TECHNIQUE: AP, lateral and oblique radiographic images acquired of the left foot. LIMITATIONS: None. FINDINGS: There has been amputation of the base of the 1st metatarsal. There is adjacent irregular periosteal reaction which could be osteomyelitis or myositis ossificans. Skin ulcer plantar surface. No foreign body identified. IMPRESSION: Possible osteomyelitis 1st metatarsal stump. TECHNICAL DOCUMENTATION: JOB ID: [id number] [employer]- All Rights Reserved Reading location - IP/workstation name: [email or web address]
== END ==
LOC: OD 09:48
PROVIDERS: ATTEND Preventive Medicine Undersea and Hyperbaric Medicine
DX: J93.9 Pneumothorax, unspecified (principal); E11.621 Type 2 diabetes mellitus with foot ulcer; L97.524 Non-pressure chronic ulcer of other part of left foot with necrosis of bone
CPT/HCPCS: 71046

== ENCOUNTER → 2018-07-20 | Outpatient (CLI) | payer MEDICARE, OTHER ==
[2018-07-20 10:15] LABS: ABSOLUTE BASOPHILS # (AUTO) 0.1 10^3/uL (0.0-0.2); ABSOLUTE EOSINOPHILS # (AUTO) 0.1 10^3/uL (0.0-0.6); ABSOLUTE LYMPHOCYTES (AUTO) 2.1 10^3/uL (0.5-4.7); ABSOLUTE MONOCYTES (AUTO) 0.4 10^3/uL (0.1-1.4); ABSOLUTE NEUT (AUTO) 3.4 10^3/uL (1.7-8.2); BASOPHILS % (AUTO) 1.1 % (0-2); EOSINOPHILS % (AUTO) 0.9 % (0-6); HEMATOCRIT 36.7 % (37.9-51.0); HEMOGLOBIN 12.9 g/dL (13.5-17.0); LYMPHOCYTES % (AUTO) 35.2 % (13-45); MEAN CORPUSCULAR HEMOGLOBIN 30.3 pg (27.0-33.4); MEAN CORPUSCULAR VOLUME 87 fl (80-97); MONOCYTES % (AUTO) 6.8 % (3-13); PLATELET COUNT 213 10^3/uL (150-450); RED BLOOD COUNT 4.24 10^6/uL (4.35-5.55); RED CELL DISTRIBUTION WIDTH 13.7 % (11.5-14.0); TOTAL CELLS COUNTED % (AUTO) 100 %
[2018-07-20 10:32] LABS: ALANINE AMINOTRANSFERASE 30 U/L (21-72); ALKALINE PHOSPHATASE 45 U/L (38-126); ANION GAP 12 (5-19); ASPARTATE AMINO TRANSFERASE 24 U/L (17-59); BILIRUBIN,DIRECT 0.4 mg/dL (0.0-0.4); BILIRUBIN,TOTAL 0.6 mg/dL (0.2-1.3); BLOOD UREA NITROGEN 21 mg/dL (7-20); C-REACTIVE PROTEIN 6.8 mg/L (<10.0); CALCIUM 10.2 mg/dL (8.4-10.2); CARBON DIOXIDE 27 mmol/L (22-30); CHLORIDE 98 mmol/L (98-107); GLUCOSE 178 mg/dL (75-110); POTASSIUM 4.1 mmol/L (3.6-5.0); SODIUM 137.4 mmol/L (137-145); TOTAL PROTEIN 7.3 g/dL (6.3-8.2)
--- NOTE | 2018-07-20 10:40 | RADIOLOGY REPORT (SQ) ---
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 TECHNIQUE: AP, lateral and oblique radiographic images acquired of the right foot. LIMITATIONS: None. FINDINGS: MINERALIZATION: Normal. BONES: Postsurgical changes from prior great toe phalanx amputation. Unchanged heterotopic fragments about the distal 1st metatarsal. There is increased heterotopic ossification and cortical lucency a bout the mid and distal 3rd phalanges suggestive of osteomyelitis. No evidence of acute fracture or dislocation. Small plantar calcaneal enthesophytes. Trigonal process. JOINTS: Mild midfoot degenerative changes. No large effusion. SOFT TISSUES: Postsurgical changes from 1st digit amputation. Soft tissue swelling about the distal 3rd digit. . No radiopaque foreign body. Scattered vascular calcifications. OTHER: No other significant finding. IMPRESSION: Increased cortical destruction about the mid and distal 3rd phalanges most compatible wi th osteomyelitis. Postsurgical changes from prior great toe phalanx amputation, stable. TECHNICAL DOCUMENTATION: JOB ID: [id number] [employer]- All Rights Reserved Reading location - IP/workstation name: [email or web address]
[2018-07-20 11:01] LABS: ERYTHROCYTE SEDIMENTATION RATE 44 mm/hr (0-20)
== END ==
LOC: WC 08:12
PROVIDERS: ATTEND Preventive Medicine Undersea and Hyperbaric Medicine
DX: L97.512 Non-pressure chronic ulcer of other part of right foot with fat layer exposed (principal)
CPT/HCPCS: 36415; 80053; 85025; 85652; 86140

== ENCOUNTER → 2018-08-16 | Outpatient (CLI) | payer MEDICARE, OTHER ==
--- NOTE | 2018-08-16 13:01 | RADIOLOGY REPORT (SQ) ---
EXAM DESCRIPTION: FOOT RIGHT COMPLETE COMPLETED DATE/TIME: 08/16/2018 11:56 am REASON FOR STUDY: NON-PRS CHRONIC ULCER OTH PRT RIGHT FOOT W NECROSIS OF BONE L97.514 NON-PRS CHRON IC ULCER OTH PRT RIGHT FOOT W NECROSIS COMPARISON: 12/19 05/10 NUMBER OF VIEWS: Three views. TECHNIQUE: AP, lateral and oblique radiographic images acquired of the right foot. LIMITATIONS: None. FINDINGS: BONES: There is worsening bony destruction about the mid and distal 3rd phalanges. Eviden ce of prior 1st toe amputation, not significantly changed from prior. Unchanged appearance of the di stal 2nd tuft. No new fracture. No evidence of dislocation. Trigonal process. Calcaneal enthesophy ariadna. Midfoot degenerative change with osteophytosis. JOINTS: No effusions. SOFT TISSUES: With soft tissue swelling about the distal 3rd digit. Prior 1st digit amputation. OTHER: No other significant finding. IMPRESSION: Worsening bony destruction about the mid and distal 3rd phalanges most compatible with o steomyelitis. Prior 1st toe amputation, unchanged. TECHNICAL DOCUMENTATION: JOB ID: [id number] [employer]- All Rights Reserved Reading location - IP/workstation name: [email or web address]
== END ==
LOC: OD 11:40
PROVIDERS: ATTEND Preventive Medicine Undersea and Hyperbaric Medicine
DX: L97.514 Non-pressure chronic ulcer of other part of right foot with necrosis of bone (principal)

== ENCOUNTER → 2018-10-12 | Outpatient (CLI) | payer MEDICARE, OTHER ==
[2018-10-12 11:49] LABS: ABSOLUTE EOSINOPHILS # (AUTO) 0.1 10^3/uL (0.0-0.6); ABSOLUTE LYMPHOCYTES (AUTO) 1.7 10^3/uL (0.5-4.7); ABSOLUTE MONOCYTES (AUTO) 0.4 10^3/uL (0.1-1.4); ABSOLUTE NEUT (AUTO) 3.3 10^3/uL (1.7-8.2); BASOPHILS % (AUTO) 0.8 % (0-2); EOSINOPHILS % (AUTO) 0.9 % (0-6); HEMATOCRIT 36.8 % (37.9-51.0); HEMOGLOBIN 12.9 g/dL (13.5-17.0); LYMPHOCYTES % (AUTO) 31.3 % (13-45); MEAN CORPUSCULAR HEMOGLOBIN 31.3 pg (27.0-33.4); MEAN CORPUSCULAR HGB CONC 34.9 g/dL (32.0-36.0); MEAN CORPUSCULAR VOLUME 90 fl (80-97); MONOCYTES % (AUTO) 7.2 % (3-13); PLATELET COUNT 178 10^3/uL (150-450); RED CELL DISTRIBUTION WIDTH 12.6 % (11.5-14.0); SEGMENTED NEUTROPHILS % (AUTO) 59.8 % (42-78); TOTAL CELLS COUNTED % (AUTO) 100 %; WHITE BLOOD COUNT 5.5 10^3/uL (4.0-10.5)
[2018-10-12 12:09] LABS: ALANINE AMINOTRANSFERASE 25 U/L (21-72); ALBUMIN 3.9 g/dL (3.5-5.0); ALKALINE PHOSPHATASE 40 U/L (38-126); ANION GAP 11 (5-19); ASPARTATE AMINO TRANSFERASE 22 U/L (17-59); BILIRUBIN,DIRECT 0.3 mg/dL (0.0-0.4); BILIRUBIN,TOTAL 0.7 mg/dL (0.2-1.3); BLOOD UREA NITROGEN 19 mg/dL (7-20); CALCIUM 9.6 mg/dL (8.4-10.2); CARBON DIOXIDE 26 mmol/L (22-30); CHLORIDE 101 mmol/L (98-107); GLUCOSE 273 mg/dL (75-110); POTASSIUM 4.4 mmol/L (3.6-5.0); SODIUM 138.1 mmol/L (137-145); TOTAL PROTEIN 6.7 g/dL (6.3-8.2)
[2018-10-12 12:11] LABS: C-REACTIVE PROTEIN < 5.0 mg/L (<10.0)
[2018-10-12 12:30] LABS: ERYTHROCYTE SEDIMENTATION RATE 24 mm/hr (0-20)
--- NOTE | 2018-10-12 12:59 | RADIOLOGY REPORT (SQ) ---
EXAM DESCRIPTION: FOOT LEFT COMPLETE COMPLETED DATE/TIME: 10/12/2018 11:28 am REASON FOR STUDY: NON-PRS CHRONIC ULCER OTH PRT LEFT FOOT W FAT LAYER EXPOSED L97.522 NON-PRS CHRON IC ULCER OTH PRT LEFT FOOT W FAT LAYER E11.621 TYPE 2 DIABETES MELLITUS WITH FOOT ULCER COMPARISON: None. NUMBER OF VIEWS: Three views. TECHNIQUE: AP, lateral and oblique radiographic images acquired of the left foot. LIMITATIONS: None. FINDINGS: Aggressive deemed mineralization of the distal phalanx left foot 3rd toe distal tuft, dist al phalanx. Overlying soft tissue swelling with radiopaque ointment in knee soft tissue ulcer. Old prior great toe amputation at the piece of the 1st metatarsal. Remainder of the left foot is otherwise unremarkable. IMPRESSION: Osteomyelitis, left foot 3rd toe distal tuft, distal phalanx. TECHNICAL DOCUMENTATION: JOB ID: [id number] [employer]- All Rights Reserved Reading location - IP/workstation name: [email or web address]
== END ==
LOC: WC 10:54
PROVIDERS: ATTEND Preventive Medicine Undersea and Hyperbaric Medicine
DX: E11.621 Type 2 diabetes mellitus with foot ulcer (principal); L97.522 Non-pressure chronic ulcer of other part of left foot with fat layer exposed; M86.8X7 Other osteomyelitis, ankle and foot
CPT/HCPCS: 36415; 80053; 83036; 85025; 85652; 86140

== ENCOUNTER → 2018-11-07 | Outpatient (CLI) | payer MEDICARE, OTHER ==
--- NOTE | 2018-11-07 12:58 | RADIOLOGY REPORT (SQ) ---
EXAM DESCRIPTION: FOOT LEFT COMPLETE COMPLETED DATE/TIME: 11/07/2018 10:51 am REASON FOR STUDY: ULCER ON LT FOOT L97.522 NON-PRS CHRONIC ULCER OTH PRT LEFT FOOT W FAT LAYER COMPARISON: 10/12/2018 NUMBER OF VIEWS: Three views. TECHNIQUE: AP, lateral and oblique radiographic images acquired of the left foot. LIMITATIONS: None. FINDINGS: MINERALIZATION: Normal. BONES: Progression of the osteomyelitis of the distal 3rd digit. progressive bone destruction. Chronic postsurgical changes of the 1st ray. Similar in appearance to previous. Focal lytic lesion proximal seconds metatarsal stable. JOINTS: No effusions. SOFT TISSUES: Chronic calcification of the Achilles. OTHER: No other significant finding. IMPRESSION: Progressive osteomyelitis of the 3rd digit. Stable appearance of the changes in the 1st and seconds rays. TECHNICAL DOCUMENTATION: JOB ID: [id number] [employer]- All Rights Reserved Reading location - IP/workstation name: [email or web address]
== END ==
LOC: WC 10:42
PROVIDERS: ATTEND Preventive Medicine Undersea and Hyperbaric Medicine
DX: L97.522 Non-pressure chronic ulcer of other part of left foot with fat layer exposed (principal); M86.8X7 Other osteomyelitis, ankle and foot

== ENCOUNTER 2019-01-23 07:30 | Day surgery (SDC) | payer MEDICARE, OTHER ==
[~2019-01-23 07:30] MED LIST: BUPIVACAINE HCL 0.75% INJ/PF (7.5 MG/1 ML) 10 ML SDV OS PRN; KETOROLAC TROMETHAMINE 0.45% 4 DROP/0.4 ML DROPERETTE OS PRN; LIDOCAINE 4% INJ/PF (40 MG/ML) 5 ML AMPUL OS PRN
[2019-01-23] MEDS ORDERED: EPINEPHRINE INJ/PF 1 MG/1 ML AMPULE ONE (07:32)
[2019-01-23] MEDS ORDERED: CHONDR SU A NA/HYALUR INTRAOC KIT (SURGICARE) ONE (07:32)
[2019-01-23] MEDS ORDERED: LIDOCAINE 1% INJ-PF (10 MG/ML) 30 ML SDV ONE (07:32)
[2019-01-23] MEDS: TROPICAMIDE 1% OPH SOLN 15 ML OS PRN ×3 (08:10→08:30)
[2019-01-23] MEDS: TETRACAINE HCL 0.5% OPH SOLN 4 ML OS PRN ×2 (08:10→08:31)
[2019-01-23] MEDS: BESIFLOXACIN HCL 0.6% OPH SUSP 5 ML BOTTLE OS PRN ×4 (08:11→09:23)
[2019-01-23] MEDS: CYCLOPENTOLATE 0.2%/PHENYLEPHRINE 1% OPH SOLN 2 ML OS PRN ×3 (08:11→08:30)
[2019-01-23] MEDS ORDERED: MIDAZOLAM 2 MG/2 ML INJ ONE (08:32)
[2019-01-23] MEDS ORDERED: FENTANYL CITRATE INJ/PF 100 MCG/2 ML AMPUL ONE (08:32)
[2019-01-23] MEDS: DORZOLAMIDE HCL 2%/TIMOLOL MALEAT 0.5% OPH SOLN 10 ML OS PRN ×2 (09:09→09:23)
--- NOTE | 2019-01-23 13:49 | Operative Report ---
Operative Report-[facility] Operative Report: DATE OF SURGERY: 01/23/2019 PREOPERATIVE DIAGNOSIS: CATARACT, LEFT EYE. POSTOPERATIVE DIAGNOSIS: CATARACT, LEFT EYE. PROCEDURE PERFORMED: PHACOEMULSIFICATION WITH POSTERIOR CHAMBER INTRAOCULAR LENS, LEFT EYE. Intraocular Lens Model : MX60E 13.5 Total Phaco Time: 2.04 minutes SURGEON: EDIN BARR MD ANESTHESIA: TOPICAL WITH MAC. INDICATIONS FOR SURGERY: Difficultly driving at night PROCEDURE: The patient was brought to the Operating Room and placed on the operative table. Following tetracaine drops, topical anesthesia was administered. This consisted of instrument wipe pledgets soaked in a solution of 4% Xylocaine mixed with 0.75% Marcaine in a 1:2 ratio. A 2 x 1 cm pledget was placed in the superior fornix. A 1 x 1 cm pledget was placed in the inferior fornix. The eye was patched shut for 5 minutes. The patch was removed. The eye was sterilely prepped and draped in the usual manner. Lid speculum was placed in the eye. The pledgets were removed. 4-0 black silk sutures were placed around the superior and the inferior rectus muscles to be used as traction. A conjunctival peritomy was made at the 10 o'clock position. Hemostasis was obtained with bipolar cautery. A posterior limbal groove was created using a crescent knife and dissected anteriorly towards the cornea. A sharp point blade was used to create a paracentesis site at the 2 o'clock position. 0.2 cc non preserved Lidocaine was injected into the anterior chamber. A 2.4 mm keratome was used to enter the anterior chamber through the groove. Viscoelastic was injected into the anterior chamber. An anterior capsulotomy was performed using Utrata forceps in a capsulorrhexis fashion. Hydrodissection and hydrodelineation were performed. Phacoemulsification was performed in [id number] technique. Following this, the I/A unit was used to remove residual cortex. Viscoelastic was injected into the capsular bag. The Intraocular lens was placed in the capsular bag. The I/A unit was used to remove residual viscoelastic. The wound was seen to be watertight under high and low pressure, and no sutures were placed. The intraocular lens was well centered. The pressure was adjusted in the eye to normal pressure. The 4-0 black silk sutures and lid speculum were removed. The eye was shielded after Besivance and Cosopt drops were placed. The patient tolerated the procedure well and was sent to the Recovery Room in good condition.
== END 2019-01-23 09:59 | disposition home or self-care (01) ==
LOC: SC 07:30
PROVIDERS: ATTEND Ophthalmology
DX: H25.813 Combined forms of age-related cataract, bilateral (principal); E11.9 Type 2 diabetes mellitus without complications; I10 Essential (primary) hypertension; K21.9 Gastro-esophageal reflux disease without esophagitis; H59.812 Chorioretinal scars after surgery for detachment, left eye; E11.3313 Type 2 diabetes mellitus with moderate nonproliferative diabetic retinopathy with macular edema, bilateral; H53.2 Diplopia; H40.013 Open angle with borderline findings, low risk, bilateral; H04.123 Dry eye syndrome of bilateral lacrimal glands; Z79.4 Long term (current) use of insulin; Z85.828 Personal history of other malignant neoplasm of skin
CPT/HCPCS: 82962; 00142; 66984; V2632; J2250; J3490 ×5; A9270; J0171; J3010; 142

== ENCOUNTER 2019-03-20 06:40 | Day surgery (SDC) | payer MEDICARE, OTHER ==
[~2019-03-20 06:40] MED LIST changes: +BUPIVACAINE HCL 0.75% INJ/PF (7.5 MG/1 ML) 10 ML SDV OD PRN; -BUPIVACAINE HCL 0.75% INJ/PF (7.5 MG/1 ML) 10 ML SDV OS PRN; +KETOROLAC TROMETHAMINE 0.45% 4 DROP/0.4 ML DROPERETTE OD PRN; -KETOROLAC TROMETHAMINE 0.45% 4 DROP/0.4 ML DROPERETTE OS PRN; +LIDOCAINE 4% INJ/PF (40 MG/ML) 5 ML AMPUL OD PRN; -LIDOCAINE 4% INJ/PF (40 MG/ML) 5 ML AMPUL OS PRN
[2019-03-20] MEDS: TETRACAINE HCL 0.5% OPH SOLN 4 ML OD PRN ×3 (07:03→07:54)
[2019-03-20] MEDS: TROPICAMIDE 1% OPH SOLN 15 ML OD PRN ×3 (07:03→07:30)
[2019-03-20] MEDS: CYCLOPENTOLATE 0.2%/PHENYLEPHRINE 1% OPH SOLN 2 ML OD PRN ×3 (07:03→07:30)
[2019-03-20] MEDS: BESIFLOXACIN HCL 0.6% OPH SUSP 5 ML BOTTLE OD PRN ×4 (07:03→08:19)
[2019-03-20] MEDS ORDERED: LIDOCAINE 1% INJ-PF (10 MG/ML) 30 ML SDV ONE (07:11)
[2019-03-20] MEDS ORDERED: CHONDR SU A NA/HYALUR INTRAOC KIT (SURGICARE) ONE (07:11)
[2019-03-20] MEDS ORDERED: EPINEPHRINE INJ/PF 1 MG/1 ML AMPULE ONE (07:11)
[2019-03-20] MEDS ORDERED: FENTANYL CITRATE INJ/PF 100 MCG/2 ML AMPUL ONE (07:29)
[2019-03-20] MEDS ORDERED: MIDAZOLAM 2 MG/2 ML INJ ONE (07:29)
[2019-03-20] MEDS: DORZOLAMIDE HCL 2%/TIMOLOL MALEAT 0.5% OPH SOLN 10 ML OD PRN ×2 (08:19)
--- NOTE | 2019-03-20 09:13 | Operative Report ---
Operative Report-[facility] Operative Report: DATE OF SURGERY: 03/20/2019 PREOPERATIVE DIAGNOSIS: CATARACT, RIGHT EYE. POSTOPERATIVE DIAGNOSIS: CATARACT, RIGHT EYE. PROCEDURE PERFORMED: PHACOEMULSIFICATION WITH POSTERIOR CHAMBER INTRAOCULAR LENS, RIGHT EYE. Intraocular Lens Model : MX60E 15.0 Total Phaco Time: 5.51 CDE SURGEON: EDIN BARR MD ANESTHESIA: TOPICAL WITH MAC. INDICATIONS FOR SURGERY: Difficulty reading small print. PROCEDURE: The patient was brought to the Operating Room and placed on the operative table. Following tetracaine drops, topical anesthesia was administered. This consisted of instrument wipe pledgets soaked in a solution of 4% Xylocaine mixed with 0.75% Marcaine in a 1:2 ratio. A 2 x 1 cm pledget was placed in the superior fornix. A 1 x 1 cm pledget was placed in the inferior fornix. The eye was patched shut for 5 minutes. The patch was removed. The eye was sterilely prepped and draped in the usual manner. Lid speculum was placed in the eye. The pledgets were removed. 4-0 black silk sutures were placed around the superior and the inferior rectus muscles to be used as traction. A conjunctival peritomy was made at the 10 o'clock position. Hemostasis was obtained with bipolar cautery. A posterior limbal groove was created using a crescent knife and dissected anteriorly towards the cornea. A sharp point blade was used to create a paracentesis site at the 2 o'clock position. 0.2 cc non preserved Lidocaine was injected into the anterior chamber. A 2.4 mm keratome was used to enter the anterior chamber through the groove. Viscoelastic was injected into the anterior chamber. An anterior capsulotomy was performed using Utrata forceps in a capsulorrhexis fashion. Hydrodissection and hydrodelineation were performed. Phacoemulsification was performed in [id number] technique. Following this, the I/A unit was used to remove residual cortex. Viscoelastic was injected into the capsular bag. The Intraocular lens was placed in the capsular bag. The I/A unit was used to remove residual viscoelastic. The wound was seen to be watertight under high and low pressure, and no sutures were placed. The intraocular lens was well centered. The pressure was adjusted in the eye to normal pressure. The 4-0 black silk sutures and lid speculum were removed. The eye was shielded after Besivance and Cosopt drops were placed. The patient tolerated the procedure well and was sent to the Recovery Room in good condition.
== END 2019-03-20 08:57 ==
LOC: SC 06:40
PROVIDERS: ATTEND Ophthalmology
DX: H25.811 Combined forms of age-related cataract, right eye (principal); E11.3313 Type 2 diabetes mellitus with moderate nonproliferative diabetic retinopathy with macular edema, bilateral; Z96.1 Presence of intraocular lens; I10 Essential (primary) hypertension; Z79.899 Other long term (current) drug therapy
CPT/HCPCS: 82962; 66984; V2632; J2250; J3490 ×5; A9270; J0171; J3010

== ENCOUNTER → 2019-06-28 | Outpatient (CLI) | payer MEDICARE, OTHER ==
[2019-06-28 10:32] LABS: ABSOLUTE BASOPHILS # (AUTO) 0.1 10^3/uL (0.0-0.2); ABSOLUTE LYMPHOCYTES (AUTO) 2.2 10^3/uL (0.5-4.7); ABSOLUTE MONOCYTES (AUTO) 0.7 10^3/uL (0.1-1.4); ABSOLUTE NEUT (AUTO) 4.3 10^3/uL (1.7-8.2); BASOPHILS % (AUTO) 0.7 % (0-2); EOSINOPHILS % (AUTO) 0.6 % (0-6); HEMATOCRIT 39.3 % (37.9-51.0); HEMOGLOBIN 13.5 g/dL (13.5-17.0); LYMPHOCYTES % (AUTO) 30.5 % (13-45); MEAN CORPUSCULAR HEMOGLOBIN 30.9 pg (27.0-33.4); MEAN CORPUSCULAR HGB CONC 34.3 g/dL (32.0-36.0); MEAN CORPUSCULAR VOLUME 90 fl (80-97); MONOCYTES % (AUTO) 8.9 % (3-13); PLATELET COUNT 241 10^3/uL (150-450); RED BLOOD COUNT 4.36 10^6/uL (4.35-5.55); RED CELL DISTRIBUTION WIDTH 12.9 % (11.5-14.0); SEGMENTED NEUTROPHILS % (AUTO) 59.3 % (42-78); TOTAL CELLS COUNTED % (AUTO) 100 %; WHITE BLOOD COUNT 7.3 10^3/uL (4.0-10.5)
[2019-06-28 11:12] LABS: ALBUMIN 4.2 g/dL (3.5-5.0); ALKALINE PHOSPHATASE 42 U/L (38-126); ANION GAP 9 (5-19); ASPARTATE AMINO TRANSFERASE 27 U/L (17-59); BILIRUBIN,DIRECT 0.1 mg/dL (0.0-0.4); BILIRUBIN,TOTAL 0.8 mg/dL (0.2-1.3); BLOOD UREA NITROGEN 19 mg/dL (7-20); CALCIUM 9.8 mg/dL (8.4-10.2); CARBON DIOXIDE 27 mmol/L (22-30); CHLORIDE 100 mmol/L (98-107); ERYTHROCYTE SEDIMENTATION RATE 38 mm/hr (0-20); GLUCOSE 126 mg/dL (75-110); TOTAL PROTEIN 7.4 g/dL (6.3-8.2)
[2019-06-28 11:15] LABS: C-REACTIVE PROTEIN < 5.0 mg/L (<10.0)
--- NOTE | 2019-06-28 13:02 | RADIOLOGY REPORT (SQ) ---
EXAM DESCRIPTION: FOOT LEFT COMPLETE COMPLETED DATE/TIME: 06/28/2019 10:35 am REASON FOR STUDY: NON-PRS CHRONIC ULCER OTH PRT LEFT FOOT W FAT LAYER EXPOSED L97.522 NON-PRS CHRON IC ULCER OTH PRT LEFT FOOT W FAT LAYER E11.621 TYPE 2 DIABETES MELLITUS WITH FOOT ULCER COMPARISON: 11/07/2018 NUMBER OF VIEWS: Three views. TECHNIQUE: AP, lateral and oblique radiographic images acquired of the left foot. LIMITATIONS: None. FINDINGS: MINERALIZATION: Normal. BONES: No fracture or dislocation. No evidence osteomyelitis. Amputation of the 1st digit from the base of the 1st metatarsal. Prominent dorsal calcaneal spur. JOINTS: No effusions. SOFT TISSUES: No soft tissue swelling. No foreign body. OTHER: A soft tissue calcifications associated with the Achilles tendon. IMPRESSION: There is no evidence of osteomyelitis. Findings as described. TECHNICAL DOCUMENTATION: JOB ID: [id number] 2010 [email or web address]- All Rights Reserved Reading location - IP/workstation name: [email or web address]
== END ==
LOC: WC 09:56
PROVIDERS: ATTEND Preventive Medicine Undersea and Hyperbaric Medicine
DX: E11.621 Type 2 diabetes mellitus with foot ulcer (principal); L97.522 Non-pressure chronic ulcer of other part of left foot with fat layer exposed
CPT/HCPCS: 36415; 80053; 83036; 85025; 85652; 86140

== ENCOUNTER → 2019-07-09 | Outpatient (CLI) | payer MEDICARE, OTHER | LOC: SP 09:51 | PROVIDERS: ATTEND Preventive Medicine Undersea and Hyperbaric Medicine | DX: L97.522 Non-pressure chronic ulcer of other part of left foot with fat layer exposed (principal) | CPT/HCPCS: 93922; 93925 ==

== ENCOUNTER → 2019-07-26 | Outpatient (CLI) | payer MEDICARE, OTHER ==
[2019-07-26 10:24] LABS: ABSOLUTE BASOPHILS # (AUTO) 0.1 10^3/uL (0.0-0.2); ABSOLUTE EOSINOPHILS # (AUTO) 0.1 10^3/uL (0.0-0.6); ABSOLUTE LYMPHOCYTES (AUTO) 1.9 10^3/uL (0.5-4.7); ABSOLUTE MONOCYTES (AUTO) 0.4 10^3/uL (0.1-1.4); BASOPHILS % (AUTO) 1.1 % (0-2); EOSINOPHILS % (AUTO) 0.9 % (0-6); HEMATOCRIT 39.6 % (37.9-51.0); HEMOGLOBIN 13.5 g/dL (13.5-17.0); LYMPHOCYTES % (AUTO) 35.5 % (13-45); MEAN CORPUSCULAR HEMOGLOBIN 31.1 pg (27.0-33.4); MEAN CORPUSCULAR HGB CONC 34.1 g/dL (32.0-36.0); MEAN CORPUSCULAR VOLUME 91 fl (80-97); MONOCYTES % (AUTO) 7.9 % (3-13); PLATELET COUNT 167 10^3/uL (150-450); RED BLOOD COUNT 4.34 10^6/uL (4.35-5.55); RED CELL DISTRIBUTION WIDTH 13.2 % (11.5-14.0); SEGMENTED NEUTROPHILS % (AUTO) 54.6 % (42-78); TOTAL CELLS COUNTED % (AUTO) 100 %; WHITE BLOOD COUNT 5.5 10^3/uL (4.0-10.5)
--- NOTE | 2019-07-26 10:38 | RADIOLOGY REPORT (SQ) ---
EXAM DESCRIPTION: FOOT LEFT COMPLETE COMPLETED DATE/TIME: 07/26/2019 10:18 am REASON FOR STUDY: NON-PRS CHRONIC ULCER OTH PRT LEFT FOOT W FAT LAYER EXPOSED L97.522 NON-PRS CHRON IC ULCER OTH PRT LEFT FOOT W FAT LAYER E11.621 TYPE 2 DIABETES MELLITUS WITH FOOT ULCER COMPARISON: 06/28/2019 NUMBER OF VIEWS: Three views. TECHNIQUE: AP, lateral and oblique radiographic images acquired of the left foot. LIMITATIONS: None. FINDINGS: MINERALIZATION: Normal. BONES: Postsurgical changes are again noted. No acute fracture or dislocation. No conventional radi ographic evidence of osteomyelitis. JOINTS: No effusions. SOFT TISSUES: No soft tissue swelling. No foreign body. OTHER: No other significant finding. IMPRESSION: Postsurgical changes. No conventional radiographic evidence of osteomyelitis. TECHNICAL DOCUMENTATION: JOB ID: [id number] 2010 [email or web address]- All Rights Reserved Reading location - IP/workstation name: [email or web address]
[2019-07-26 10:47] LABS: ALBUMIN 4.1 g/dL (3.5-5.0); ALKALINE PHOSPHATASE 52 U/L (38-126); ANION GAP 11 (5-19); ASPARTATE AMINO TRANSFERASE 30 U/L (17-59); BILIRUBIN,DIRECT 0.2 mg/dL (0.0-0.4); BILIRUBIN,TOTAL 1.1 mg/dL (0.2-1.3); BLOOD UREA NITROGEN 18 mg/dL (7-20); CALCIUM 9.6 mg/dL (8.4-10.2); CARBON DIOXIDE 25 mmol/L (22-30); CHLORIDE 99 mmol/L (98-107); GLUCOSE 322 mg/dL (75-110); POTASSIUM 4.5 mmol/L (3.6-5.0); TOTAL PROTEIN 7.5 g/dL (6.3-8.2)
[2019-07-26 10:52] LABS: C-REACTIVE PROTEIN < 5.0 mg/L (<10.0)
[2019-07-26 11:11] LABS: ERYTHROCYTE SEDIMENTATION RATE 22 mm/hr (0-20)
== END ==
LOC: WC 09:52
PROVIDERS: ATTEND Preventive Medicine Undersea and Hyperbaric Medicine
DX: E11.621 Type 2 diabetes mellitus with foot ulcer (principal); L97.522 Non-pressure chronic ulcer of other part of left foot with fat layer exposed
CPT/HCPCS: 36415; 80053; 83036; 85025; 85652; 86140

== ENCOUNTER → 2019-09-27 | Outpatient (CLI) | payer MEDICARE, OTHER ==
[2019-09-27 12:03] LABS: ABSOLUTE BASOPHILS # (AUTO) 0.1 10^3/uL (0.0-0.2); ABSOLUTE EOSINOPHILS # (AUTO) 0.1 10^3/uL (0.0-0.6); ABSOLUTE LYMPHOCYTES (AUTO) 1.8 10^3/uL (0.5-4.7); ABSOLUTE MONOCYTES (AUTO) 0.5 10^3/uL (0.1-1.4); ABSOLUTE NEUT (AUTO) 4.9 10^3/uL (1.7-8.2); BASOPHILS % (AUTO) 0.9 % (0-2); EOSINOPHILS % (AUTO) 0.7 % (0-6); HEMATOCRIT 38.5 % (37.9-51.0); HEMOGLOBIN 13.3 g/dL (13.5-17.0); MEAN CORPUSCULAR HEMOGLOBIN 30.8 pg (27.0-33.4); MEAN CORPUSCULAR HGB CONC 34.6 g/dL (32.0-36.0); MEAN CORPUSCULAR VOLUME 89 fl (80-97); MONOCYTES % (AUTO) 7.1 % (3-13); PLATELET COUNT 177 10^3/uL (150-450); RED BLOOD COUNT 4.33 10^6/uL (4.35-5.55); RED CELL DISTRIBUTION WIDTH 13.2 % (11.5-14.0); SEGMENTED NEUTROPHILS % (AUTO) 67.3 % (42-78); TOTAL CELLS COUNTED % (AUTO) 100 %; WHITE BLOOD COUNT 7.3 10^3/uL (4.0-10.5)
[2019-09-27 12:21] LABS: ALBUMIN 4.2 g/dL (3.5-5.0); ALKALINE PHOSPHATASE 41 U/L (38-126); ANION GAP 12 (5-19); ASPARTATE AMINO TRANSFERASE 29 U/L (17-59); BILIRUBIN,DIRECT 0.1 mg/dL (0.0-0.4); BILIRUBIN,TOTAL 0.8 mg/dL (0.2-1.3); BLOOD UREA NITROGEN 23 mg/dL (7-20); C-REACTIVE PROTEIN 11.7 mg/L (<10.0); CALCIUM 9.8 mg/dL (8.4-10.2); CARBON DIOXIDE 26 mmol/L (22-30); CHLORIDE 97 mmol/L (98-107); GLUCOSE 289 mg/dL (75-110); POTASSIUM 4.5 mmol/L (3.6-5.0); TOTAL PROTEIN 7.3 g/dL (6.3-8.2)
[2019-09-27 12:41] LABS: ERYTHROCYTE SEDIMENTATION RATE 33 mm/hr (0-20)
--- NOTE | 2019-09-27 14:30 | RADIOLOGY REPORT (SQ) ---
EXAM DESCRIPTION: FOOT LEFT COMPLETE IMAGES COMPLETED DATE/TIME: 09/27/2019 11:06 am REASON FOR STUDY: NON-PRS CHRONIC ULCER OTH PRT LEFT FOOT W FAT LAYER EXPOSED L97.522 NON-PRS CHRON IC ULCER OTH PRT LEFT FOOT W FAT LAYER E11.621 TYPE 2 DIABETES MELLITUS WITH FOOT ULCER COMPARISON: Left foot films 11/07/2018, 06/28/2019, 07/26/2019 NUMBER OF VIEWS: Three views. TECHNIQUE: AP, lateral and oblique radiographic images acquired of the left foot. LIMITATIONS: None. FINDINGS: Radiopaque ointment is present along the dorsal left 2nd toe PIP joint from skin ulcer. N o underlying aggressive bony demineralization worrisome for osteomyelitis. Over the series of exams, improved mineralization of the 3rd toe distal phalanx has occurred from hea led osteomyelitis. Stable resorption of the 4th toe distal phalanx unchanged over the series of exams. Patient has a medial forefoot soft tissue ulcer. Deep to the ulcer, calcifications/ossification is p resent, stable. Old 1st toe transmetatarsal amputation. There is spotty calcification of the Achilles tendon from chronic tendinopathy. IMPRESSION: Ulcer over the 2nd toe PIP joint without aggressive bony demineralization worrisome for osteomyelitis TECHNICAL DOCUMENTATION: JOB ID: [id number] 2010 [employer]- All Rights Reserved Reading location - IP/workstation name: [email or web address]
== END ==
LOC: WC 10:42
PROVIDERS: ATTEND Preventive Medicine Undersea and Hyperbaric Medicine
DX: E11.621 Type 2 diabetes mellitus with foot ulcer (principal); L97.522 Non-pressure chronic ulcer of other part of left foot with fat layer exposed
CPT/HCPCS: 36415; 80053; 85025; 85652; 86140

== ENCOUNTER 2019-10-10 10:57 | Day surgery (SDC) | payer MEDICARE, OTHER ==
[~2019-10-10 10:57] MED LIST changes: -BUPIVACAINE HCL 0.75% INJ/PF (7.5 MG/1 ML) 10 ML SDV OD PRN; +CEFAZOLIN 1 GM/D5W RTU 1 GM/50 ML RTUPB IV PRN; -KETOROLAC TROMETHAMINE 0.45% 4 DROP/0.4 ML DROPERETTE OD PRN; -LIDOCAINE 4% INJ/PF (40 MG/ML) 5 ML AMPUL OD PRN
[2019-10-10] MEDS ORDERED: CEFAZOLIN 1 GM/D5W RTU 1 GM/50 ML RTUPB IV ONE (11:44)
[2019-10-10] MEDS ORDERED: ONDANSETRON HCL INJ/PF 4 MG/2 ML SDV ONE (12:26)
[2019-10-10] MEDS ORDERED: FENTANYL CITRATE INJ/PF 100 MCG/2 ML AMPUL ONE (12:26)
[2019-10-10] MEDS ORDERED: LIDOCAINE 2% INJ-PF (20 MG/ML) 10 ML AMPUL ONE (12:26)
[2019-10-10] MEDS ORDERED: PROPOFOL INJ 200 MG/20 ML VIAL IV ONE (12:27)
[2019-10-10] MEDS ORDERED: LIDOCAINE 1%/EPINEPHRINE INJ 20 ML VIAL ONE (13:19)
[2019-10-10] MEDS ORDERED: BUPIVACAINE HCL 0.25 % INJ/PF (2.5 MG/1 ML) 30 ML VIAL ONE (13:19)
[2019-10-10] MEDS ORDERED: DIPHENHYDRAMINE HCL 50 MG/ML VIAL IV PRN (13:45)
[2019-10-10] MEDS ORDERED: FENTANYL CITRATE INJ/PF 100 MCG/2 ML AMPUL IV PRN ×3 (13:45)
[2019-10-10] MEDS ORDERED: PROMETHAZINE HCL INJ 25 MG/1 ML VIAL IV PRN ×2 (13:45)
[2019-10-10] MEDS ORDERED: MORPHINE SULFATE 10 MG/ML INJ IV PRN (13:45)
[2019-10-10] MEDS ORDERED: MEPERIDINE HCL/PF INJ 25 MG/1 ML DISP.SYRIN IV PRN (13:45)
[2019-10-10] MEDS ORDERED: OXYCODONE-ACETAMINOPHEN 5-325 MG TABLET PO PRN ×2 (13:45)
--- NOTE | 2019-10-10 14:14 | Operative Report ---
Operative Report DATE OF SURGERY: 10/10/19 PREOPERATIVE DIAGNOSIS: Osteomyelitis second toe left foot. POSTOPERATIVE DIAGNOSIS: Name. OPERATION: Amputation of the second toe left foot. SURGEON: FRANKLYN GENTILE ANESTHESIA: LMAC COMPLICATIONS: None. ESTIMATED BLOOD LOSS: Less than 1 mL. PROCEDURE: Amputation second toe left foot. Following intravenous sedation and injection of local anesthesia into the second toe, the patient's left foot and leg were prepped and draped in a sterile manner. Stockinette was applied. Attention was then directed to the second toe where an open diabetic ulcer was identified plantar to the proximal interphalangeal joint. An incision was placed just proximal to the plantar wound and extended circumferentially around the toe, none utilizing a bone cutter the middle of the proximal phalanx was osteotomized and the distal portion of the toe including the diabetic ulcer were removed from the wound in toto. At that time a clean clean instrumentation was obtained, the remaining stump of the proximal phalanx was further debrided with a rongeur, bone samples were obtained for bacterial culture. Ulcer biopsies edges were then rasped smooth with a hand-held rasp. The wound flushed with copious amounts of antibiotic solution and inspected for soft tissue or osseous debris with none being noted. The wound was closed with interrupted horizontal mattress suture of 5-0 nylon. Sterile dressing consisting of Acticoat Flex, 4 x 4's, fluff, conform, Kerlix, Coban. Patient tolerated surgery anesthesia well a nd was taken to the recovery room.
[2019-10-10 15:31] VITALS: BP 143/61
== END 2019-10-10 15:05 | disposition home or self-care (01) ==
LOC: OROUT 10:57
PROVIDERS: ATTEND Preventive Medicine Undersea and Hyperbaric Medicine
DX: E11.621 Type 2 diabetes mellitus with foot ulcer (principal); M86.172 Other acute osteomyelitis, left ankle and foot; I10 Essential (primary) hypertension; I48.91 Unspecified atrial fibrillation; R00.0 Tachycardia, unspecified; Z79.4 Long term (current) use of insulin; Z79.84 Long term (current) use of oral hypoglycemic drugs; Z79.899 Other long term (current) drug therapy; Z03.818 Encounter for observation for suspected exposure to other biological agents ruled out
CPT/HCPCS: 36415; 87070; 87205; 82962; 87075; 28825; U0003; J0690; J3490 ×2; J2405; J2704; C9803; 1480; 87635; J3010